=== PATIENT | male | born 1955 | race Caucasian/White ===

== ENCOUNTER 2017-08-25 19:02 | Inpatient (IN) | payer OTHER, SELFPAY ==
--- NOTE | 2017-08-25 19:08 | ED_ITS ---
HPI - Abdominal Pain General Chief Complaint: Abdominal Pain Stated Complaint: Bilateral Abdominal Pain Time Seen by Provider: 08/25/17 19:06 Source: patient, family and EMS Mode of arrival: EMS Limitations: no limitations History of Present Illness HPI narrative: 62-year-old male with history of small-bowel obstruction and multiple abdominal surgeries presents to the emergency department via would be EMS for evaluation of worsening generalized abdominal pain over the past few days. He has had subjective fever and chills and nausea but no vomiting. He states he has had decreased ability to have bowel movements over the past 5 days and increasing pain in his upper abdomen. He has got a history of small- bowel obstructions secondary to adhesions primarily as a complication from the Veronica fundoplication with a bad outcome Related Data Home Medications Medication Instructions Recorded Confirmed albuterol sulfate [ProAir HFA] 2 puff INHALATION Q4H PRN 08/25/17 08/25/17 amitriptyline 25 mg PO BEDTIME 08/25/17 08/25/17 cyclobenzaprine 10 mg PO BEDTIME 08/25/17 08/25/17 dicyclomine 10 mg PO TID 08/25/17 08/25/17 duloxetine [Cymbalta] 30 mg PO DAILY 08/25/17 08/25/17 fluticasone 1 spray INTRANASAL BID 08/25/17 08/25/17 gabapentin 3 tab PO BEDTIME 08/25/17 08/25/17 loratadine 10 mg PO DAILY PRN 08/25/17 08/25/17 metoprolol tartrate 25 mg PO DAILY 08/25/17 08/25/17 omeprazole 20 mg PO DAILY 08/25/17 08/25/17 pravastatin [Pravachol] 40 mg PO BEDTIME 08/25/17 08/25/17 sodium chloride [Jb 128] 1 dose EYE-BOTH DAILY 08/25/17 08/25/17 warfarin [Coumadin] 5 mg PO DAILY 08/25/17 08/25/17 warfarin [Coumadin] 7.5 mg PO DAILY 08/25/17 08/25/17 Allergies Allergy/AdvReac Type Severity Reaction Status Date / Time azithromycin Allergy Intermediate Verified 08/25/17 22:49 tree nut Allergy Intermediate Verified 08/25/17 22:49 morphine Allergy Verified 08/25/17 19:24 Sulfa (Sulfonamide Allergy Verified 08/25/17 19:25 Antibiotics) Review of Systems Review of Systems All systems reviewed & are unremarkable except as noted in HPI and below Constitutional Denies chills, Denies fever(s), Denies lethargy and Denies weakness Eyes Denies change in vision, Denies eye discharge, Denies irritation and Denies loss of vision ENT Ears, Nose, Mouth, and Throat: Denies change in voice, Denies neck pain and Denies sore throat Cardiovascular Denies chest pain, Denies irregular heart rhythm, Denies lightheadedness, Denies palpitations, Denies dyspnea, Denies dyspnea on exertion and Denies orthopnea Respiratory Denies cough, Denies dyspnea, Denies dyspnea on exertion and Denies wheezing Gastrointestinal Gastrointestinal: Reports abdominal pain, Denies change in bowel habits, Denies diarrhea, Reports nausea and Denies vomiting Genitourinary Denies hematuria, Denies flank pain, Denies urinary incontinence and Denies urinary urgency Musculoskeletal Denies neck pain Integumentary/Breasts Denies pruritus, Denies erythema, Denies rash and Denies wounds Neurologic Denies confusion, Denies loss of vision and Denies weakness Psychiatric Denies anxiety, Denies confusion, Denies depression, Denies homicidal ideation and Denies suicidal ideation Endocrine Denies palpitations Hematologic/Lymphatic Denies easy bruising Allergic/Immunologic Denies wheezing PFSH Medical History Achilles tendinitis (Acute) [place] esophagus (Acute) CVA (cerebral vascular accident) (Acute) Depression (Acute) Dyslipidemia (Acute) Exploratory laparotomy scar (Acute) GERD (gastroesophageal reflux disease) (Acute) HTN (hypertension) (Acute) Hiatal hernia (Acute) Small bowel obstruction (Acute) TIA (transient ischemic attack) (Acute) Surgical History History of Veronica fundoplication (Acute) History of discectomy (Acute) History of laminectomy (Acute) Hx of splenectomy (Acute) Social History Smoking Status: Former smoker alcohol intake: never Exam Narrative Exam Narrative: Uncomfortable 62-year-old male in obvious pain, holding his stomach Initial Vital Signs Initial Vital Signs: Vital Signs Pulse Rate 80 08/25/17 19:17 Respiratory Rate 18 08/25/17 19:17 Blood Pressure 131/81 H 08/25/17 19:17 Pulse Oximetry 96 08/25/17 19:17 Const General: cooperative, well developed and acute distress Nutritional Appearance: well nourished Orientation: alert, awake, oriented x3 and not confused [facility] Head: normocephalic and atraumatic Ears: external ears normal and TM's normal bilaterally Nose: external nose normal and No nasal discharge Face and sinus: sinuses nontender, face symmetric, no sinus tenderness and No dry mucous membranes Mouth: oral mucosae normal and moist mucous membranes Teeth and gingiva: dentition normal Throat: tonsils normal and uvula midline Eyes General: appearance normal, both eyes and all related structures Eyelids: eyelids normal Conjunctivae: conjunctivae normal Sclera: sclerae normal Pupils: PERRL EOM: EOM intact bilaterally Resp Effort & Inspection: normal respiratory effort, able to speak in complete sentences, no respiratory distress and no use of accessory muscles Auscultation: clear to auscultation bilaterally, no rales, no rhonchi and no wheezes GI Inspection: distended and scar Palpation: soft, no hepatosplenomegaly, No guarding, No pulsatile mass and tender (Generalized abdominal pain) Auscultation: normal bowel sounds Back/Spine/Pelvis Back: No CVA tenderness Cervical Spine: cervical ROM normal and No pain with cervical ROM Thoracic/Lumbar Spine: thoracic and lumbar spine normal to inspection Skin General: no rashes or lesions noted, No jaundice and No petechiae Neuro General: alert, oriented x3, gait normal and no focal motor deficits Speech: speech normal Extrem General: full ROM, no clubbing, cyanosis or edema, no pedal edema and no calf tenderness Course Orders Ordered: ED Orders 08/25/17 20:11 XR acute abdomen series Stat 08/25/17 20:15 Complete Blood Count AUTO DIFF Stat Comprehensive Metabolic Panel Stat Lipase Stat 08/25/17 21:03 CT abdomen pelvis w con Stat Sodium Chloride (Normal Saline 0.9%) 1,000 mls @ 150 mls/hr IV CONT KOJO Last Admin: 08/26/17 01:16 Dose: 150 mls/hr Infusion: 08/26/17 01:16 Dose: 150 mls/hr Admin: 08/25/17 19:47 Dose: 150 mls/hr HYDROMORPHONE [employer]EL[employer]IST (Dilaudid 6 Mg/30 Ml) 6 mg in 30 mls @ 0 mls/hr IV Q8HR KOJO Naloxone HCl (Narcan) 0.2 mg IV Q2MIN PRN; Protocol PRN Reason: Opiate Reversal Ondansetron HCl (Zofran) 4 mg IV Q4HR PRN PRN Reason: Nausea And Vomiting Discontinued Medications Hydromorphone HCl (Dilaudid) 0.5 mg IV NOW ONE Stop: 08/25/17 19:08 Last Admin: 08/25/17 19:47 Dose: 0.5 mg Ondansetron HCl (Zofran) 4 mg IV NOW ONE Stop: 08/25/17 20:06 Last Admin: 08/25/17 20:06 Dose: 4 mg Vital Signs - 8 hr 08/25/17 19:17 08/25/17 19:51 08/25/17 20:28 Temperature 99.7 F H Pulse Rate 80 80 76 Respiratory Rate 18 18 20 Blood Pressure 131/81 H 131/81 H Blood Pressure [Right Arm] 144/80 H Pulse Oximetry 96 96 98 08/25/17 21:38 08/25/17 22:00 08/25/17 22:20 Temperature 97.4 F L Pulse Rate 85 84 85 Respiratory Rate 19 13 20 Blood Pressure 144/97 H Blood Pressure [Right Arm] 131/82 H 121/68 H Pulse Oximetry 100 96 100 08/26/17 00:42 Temperature 98.8 F Pulse Rate 78 Respiratory Rate 18 Blood Pressure 145/85 H Blood Pressure [Right Arm] Pulse Oximetry 97 MDM - Abdominal Pain Differential Diagnosis Differential diagnosis: Likely abdominal pain, acute appendicitis, constipation , pancreatitis and small bowel obstruction Medical Records Attestation: I reviewed the patient's medical records. Lab Data Attestation: I reviewed the patient's lab results. Result diagrams: 08/25/17 20:15 08/25/17 20:15 Lab Results 08/25/17 08/25/17 08/25/17 Range/Units 20:15 20:15 Unknown WBC 10.1 (4.5-11.0) X10^3/uL RBC 4.83 (4.5-5.9) X10^6/uL Hgb 15.4 (13.5-17.5) g/dL Hct 45.1 (41-53) % MCV 93.5 (80-100) fL MCH 32.0 (26-34) PG MCHC 34.2 (30-36) % RDW 12.8 (11.6-14.8) % Plt Count 285 (150-400) X10^3/uL Neut % (Auto) 77.2 H (50-75) % Lymph % (Auto) 8.8 L (25-40) % [place] % (Auto) 12.6 (3-14) % Eos % (Auto) 1.1 L (2-4) % Baso % (Auto) 0.3 (0-2) % Neut # (Auto) 7800 H (3440-1457) /uL PT 54.3 H (10.1-12.7) SECONDS INR 5.2 H* (0.9-1.3) Sodium 141 (137-145) mmol/L Potassium 3.8 (3.4-5.1) mmol/L Chloride 103 (98-107) mmol/L Carbon Dioxide 27 (22-32) mmol/L BUN 9 (9-20) mg/dL Creatinine 0.80 (0.66-1.25) mg/dL Estimated GFR > 60.0 (>60) mL/min BUN/Creatinine Ratio 11.3 (6-22) Glucose 109 (80-110) mg/dL Calcium 9.0 (8.4-10.2) mg/dL Total Bilirubin 0.6 (0.2-1.3) mg/dL AST 26 (17-59) IU/L ALT 35 (21-72) IU/L Alkaline Phosphatase 54 (38-126) U/L Total Protein 6.7 (6.3-8.2) g/dL Albumin 3.9 (3.5-5.0) g/dL Globulin 2.8 (1.7-4.1) g/dL Albumin/Globulin Ratio 1.4 (1.0-2.8) Lipase 47 (23-300) U/L Imaging Data Abdominal x-ray: Attestation: I personally reviewed and interpreted this imaging study as follows: My impression: Nonspecific bowel gas pattern with possible air-fluid levels Radiologist's impression: PROCEDURE: XR ACUTE ABDOMEN SERIES INDICATIONS: Abdominal pain TECHNIQUE: One view chest and two views of the abdomen were acquired. COMPARISON: [facility], CT, ABDOMEN/PELVIS WITH CONTRAST, 01/17/2016, 13: 56. FINDINGS: Surgical changes and devices: None. Chest: Lungs are clear. Heart size is normal. No pleural effusions. No pneumoperitoneum. Abdomen: Bowel gas pattern is abnormal with gas filling of both the large and small bowel with overall mild to moderate dilatation of the strictures, extending into the pelvis.. No suspicious calcifications. Visualized solid organ contours appear normal. Bones: No suspicious bony lesions. IMPRESSION: Moderate gas dilatation of the large and small bowel extending into the pelvis. A point of bowel obstruction is not found. CT scanning may be warranted for more accurate assessment at this time. Dictated by: Jeff Mckinnon M.D. on 08/25/2017 at 20:51 Approved by: Jeff Mckinnon M.D. on 08/25/2017 at 20:52 CT scan - abdomen: Radiologist's impression: PROCEDURE: CT ABDOMEN PELVIS W CON INDICATIONS: severe abdominal pain TECHNIQUE: After the administration of intravenous contrast, 5 mm thick sections acquired from the diaphragm to the symphysis. 5 mm coronal and sagittal reformats were acquired. For radiation dose reduction, the following was used: automated exposure control, adjustment of mA and/or kV according to patient size. COMPARISON: None. FINDINGS: Image quality: Excellent. ABDOMEN: Lung bases: Lung bases are clear. Heart size is normal. Solid organs: Liver is normal in size and enhancement. Gallbladder appears normal. Biliary system is non dilated. Pancreas enhances normally. Spleen has been previously resected and there is a small splenule at the left upper quadrant. No adrenal nodules. Kidneys demonstrate normal size and enhancement, without hydronephrosis. Peritoneum and bowel: Colonic bowel loops demonstrate normal wall thickness and caliber and are relatively collapsed along the left colon and sigmoid area. No free fluid or air. Small bowel dilatation is present, with areas of maximal small bowel dilatation to 4.9 cm. Loops containing air-fluid levels are present over the upper and mid abdomen and below the lower left abdomen/pelvis junction there is a finding of distal small bowel normal caliber, and the right lower quadrant extending into the cecum. There is a prominence of the appendix, with a small amount of adjacent free fluid. Additional free fluid is seen deep within the lower recess of the pelvis at the midline, but no abscess is found. The appendiceal calibers up to 1 cm and the mucosal enhancement is mildly prominent (this is best seen centered on series 2 image 71 extending to the cecum and terminating at the appendiceal tip. Note is made that the appendix was relatively prominent in caliber but contained air [address]. Nodes and vessels: No retroperitoneal or mesenteric adenopathy by size criteria. Aorta and inferior vena cava are normal in size. Miscellaneous: No ventral hernias. PELVIS: Genitourinary: Bladder wall thickness is normal. Miscellaneous: No inguinal hernias or adenopathy. A focus of intussusception or volvulus as cause of the small bowel dilatation is not identified. Free fluid seen within the peritoneal space of the abdomen extends into the pelvis without abscess formation. Bones: No suspicious bony lesions. No vertebral body compression fractures. IMPRESSION: The pattern of small bowel dilatation is relatively prominent in this patient and the exact etiology is uncertain but there is no mass or intussusception, or volvulus. A likely cause is postoperative adhesion from the past. Prior splenectomy. The appendix is prominent in its transverse dimension of 1 cm and mild mucosal enhancement is associated. However the appendix previously was seen to be prominent in caliber on CT scanning of the abdomen/pelvis in January 2016. Mild acute appendicitis may be present relationship between the appearance of the appendix and the prominence of the small bowel distention is not explained. Depending on the clinical status exploratory laparotomy may be warranted at which time etiology of the small bowel dilatation and direct clinical evaluation of the appendix could be obtained. Dictated by: Jeff Mckinnon M.D. on 08/25/2017 at 21:34 Approved by: Jeff Mckinnon M.D. on 08/25/2017 at 21:44 Discharge Plan Departure Discharge Date/Time: 08/25/17 22:15 Interventions: ED Discharge Assessment Last Done: 08/25/17 22:09 Admit Date/Time: 08/25/17 22:08 Admit Provider: Carla Rodriguez
[2017-08-25 19:17] VITALS: BP 131/81; PULSE 80; RESP 18; O2SAT 96; BMI 29.5
[2017-08-25] MEDS: SODIUM CHLORIDE 0.9% 1,000 ML 150 ML IV (19:47)
[2017-08-25] MEDS: HYDROMORPHONE 0.5 MG INJ IV (19:47)
[2017-08-25 19:51] VITALS: BP 131/81; PULSE 80; RESP 18; TEMP 37.6; O2SAT 96; BMI 29.5
[2017-08-25] MEDS: ONDANSETRON 4 MG/2 ML INJ IV (20:06)
--- NOTE | 2017-08-25 20:11 | DI.RAD.S_ITS ---
PROCEDURE: XR ACUTE ABDOMEN SERIES INDICATIONS: Abdominal pain TECHNIQUE: One view chest and two views of the abdomen were acquired. COMPARISON: [facility], CT, ABDOMEN/PELVIS WITH CONTRAST, 01/17/2016, 13:56. FINDINGS: Surgical changes and devices: None. Chest: Lungs are clear. Heart size is normal. No pleural effusions. No pneumoperitoneum. Abdomen: Bowel gas pattern is abnormal with gas filling of both the large and small bowel with overall mild to moderate dilatation of the strictures, extending into the pelvis.. No suspicious calcifications. Visualized solid organ contours appear normal. Bones: No suspicious bony lesions. IMPRESSION: Moderate gas dilatation of the large and small bowel extending into the pelvis. A point of bowel obstruction is not found. CT scanning may be warranted for more accurate assessment at this time. Dictated by: Jeff Mckinnon M.D. on 08/25/2017 at 20:51 Approved by: Jeff Mckinnon M.D. on 08/25/2017 at 20:52
[2017-08-25 20:23] LABS: Add Manual Diff / Slide Review NO; Basophils Percent Auto 0.3 % (0-2); Eosinophils Percent Auto 1.1 % (2-4); Hematocrit 45.1 % (41-53); Hemoglobin 15.4 g/dL (13.5-17.5); Lymphocytes Percent Auto 8.8 % (25-40); Mean Corpuscular HGB Conc 34.2 % (30-36); Mean Corpuscular Volume 93.5 fL (80-100); Monocytes Percent Auto 12.6 % (3-14); Neutrophils Absolute Auto 7800 /uL (3000-5900); Neutrophils Percent Auto 77.2 % (50-75); Platelet Count 285 X10^3/uL (150-400); Red Blood Cell Count 4.83 X10^6/uL (4.5-5.9); Red Cell Distribution Width 12.8 % (11.6-14.8); White Blood Cell Count 10.1 X10^3/uL (4.5-11.0)
[2017-08-25 20:28] VITALS: BP 144/80; PULSE 76; RESP 20; O2SAT 98
[2017-08-25 20:34] LABS: Alanine Aminotransferase 35 IU/L (21-72); Albumin 3.9 g/dL (3.5-5.0); Albumin Globulin Ratio 1.4 (1.0-2.8); Alkaline Phosphatase 54 U/L (38-126); Aspartate Aminotransferase 26 IU/L (17-59); BUN Creatinine Ratio 11.3 (6-22); Bilirubin Total 0.6 mg/dL (0.2-1.3); Blood Urea Nitrogen 9 mg/dL (9-20); Carbon Dioxide 27 mmol/L (22-32); Chloride 103 mmol/L (98-107); Estimated Glomerular Filt Rate > 60.0 mL/min (>60); Globulin 2.8 g/dL (1.7-4.1); Glucose 109 mg/dL (80-110); HEMOLYSIS < 15 (0-50); Lipase 47 U/L (23-300); Potassium 3.8 mmol/L (3.4-5.1); Sodium 141 mmol/L (137-145); Total Protein 6.7 g/dL (6.3-8.2)
--- NOTE | 2017-08-25 21:03 | DI.CT.S_ITS ---
PROCEDURE: CT ABDOMEN PELVIS W CON INDICATIONS: severe abdominal pain TECHNIQUE: After the administration of intravenous contrast, 5 mm thick sections acquired from the diaphragm to the symphysis. 5 mm coronal and sagittal reformats were acquired. For radiation dose reduction, the following was used: automated exposure control, adjustment of mA and/or kV according to patient size. COMPARISON: None. FINDINGS: Image quality: Excellent. ABDOMEN: Lung bases: Lung bases are clear. Heart size is normal. Solid organs: Liver is normal in size and enhancement. Gallbladder appears normal. Biliary system is non dilated. Pancreas enhances normally. Spleen has been previously resected and there is a small splenule at the left upper quadrant. No adrenal nodules. Kidneys demonstrate normal size and enhancement, without hydronephrosis. Peritoneum and bowel: Colonic bowel loops demonstrate normal wall thickness and caliber and are relatively collapsed along the left colon and sigmoid area. No free fluid or air. Small bowel dilatation is present, with areas of maximal small bowel dilatation to 4.9 cm. Loops containing air-fluid levels are present over the upper and mid abdomen and below the lower left abdomen/pelvis junction there is a finding of distal small bowel normal caliber, and the right lower quadrant extending into the cecum. There is a prominence of the appendix, with a small amount of adjacent free fluid. Additional free fluid is seen deep within the lower recess of the pelvis at the midline, but no abscess is found. The appendiceal calibers up to 1 cm and the mucosal enhancement is mildly prominent (this is best seen centered on series 2 image 71 extending to the cecum and terminating at the appendiceal tip. Note is made that the appendix was relatively prominent in caliber but contained air [address]. Nodes and vessels: No retroperitoneal or mesenteric adenopathy by size criteria. Aorta and inferior vena cava are normal in size. Miscellaneous: No ventral hernias. PELVIS: Genitourinary: Bladder wall thickness is normal. Miscellaneous: No inguinal hernias or adenopathy. A focus of intussusception or volvulus as cause of the small bowel dilatation is not identified. Free fluid seen within the peritoneal space of the abdomen extends into the pelvis without abscess formation. Bones: No suspicious bony lesions. No vertebral body compression fractures. IMPRESSION: The pattern of small bowel dilatation is relatively prominent in this patient and the exact etiology is uncertain but there is no mass or intussusception, or volvulus. A likely cause is postoperative adhesion from the past. Prior splenectomy. The appendix is prominent in its transverse dimension of 1 cm and mild mucosal enhancement is associated. However the appendix previously was seen to be prominent in caliber on CT scanning of the abdomen/pelvis in January 2016. Mild acute appendicitis may be present relationship between the appearance of the appendix and the prominence of the small bowel distention is not explained. Depending on the clinical status exploratory laparotomy may be warranted at which time etiology of the small bowel dilatation and direct clinical evaluation of the appendix could be obtained. Dictated by: Jeff Mckinnon M.D. on 08/25/2017 at 21:34 Approved by: Jeff Mckinnon M.D. on 08/25/2017 at 21:44
[2017-08-25 21:38] VITALS: BP 131/82; PULSE 85; RESP 19; O2SAT 100
[2017-08-25 22:00] VITALS: BP 121/68; PULSE 84; RESP 13; O2SAT 96
[2017-08-25 22:14] LABS: Prothrombin Time 54.3 SECONDS (10.1-12.7)
[2017-08-25 22:20] VITALS: BP 144/97; PULSE 85; RESP 20; TEMP 36.3; O2SAT 100
[2017-08-25 22:21] LABS: INR 5.2 (0.9-1.3)
[2017-08-25 22:30] VITALS: BMI 29.5
--- NOTE | 2017-08-25 23:18 | PC.NURSE ---
Pt up to the floor from er at 2220. Pt was able to ambulate from stretcher to ac bed. A&O, calm and cooperative. Pt states has some memory loss from CVA that happened in 2013. Waiting for doctor to round on patient and to place orders.
[2017-08-26] VITALS (7 sets, daily range): BP systolic 107–145; BP diastolic 51–85; PULSE 70–78; RESP 16–18; TEMP 36.4–37.1; O2SAT 96–98
[2017-08-26] MEDS: SODIUM CHLORIDE 0.9% 1,000 ML 150 ML IV ×2 (01:16→06:51)
[2017-08-26] MEDS: HYDROMORPHONE PCA 6 MG/30 ML PCA.VIAL IV ×3 (06:47→21:22)
[2017-08-26] MEDS: ONDANSETRON 4 MG/2 ML INJ IV (08:42)
--- NOTE | 2017-08-26 09:44 | PM.HP.1 ---
History of Present Illness Date Patient Seen: 08/26/17 Time Patient Seen: 10:00 Chief complaint: Bilateral Abdominal Pain Narrative: 62-year-old man under the primary care of Dr. Jack Zambrano with a history of small-bowel obstruction several years ago due to adhesions attributed to scarring from prior Veronica fundoplication complicated by splenic laceration requiring splenectomy in 2005, presented overnight with generalized abdominal pain over the past few days, fevers, chills, decreased bowel movements, and upper abdominal pain without vomiting or diarrhea. He is admitted overnight and placed on Dilaudid [employer] and IV fluids, stating feeling much better this morning. He was unable to urinate with a urinary residual on bladder ultrasound of 700 mL, and a Perez catheter was placed this morning. He notes a prior history of urinary retention when he had his last bowel obstruction. Patient History Medical History Achilles tendinitis (Acute) Henderson esophagus (Acute) CVA (cerebral vascular accident) (Acute) Depression (Acute) Dyslipidemia (Acute) Exploratory laparotomy scar (Acute) GERD (gastroesophageal reflux disease) (Acute) HTN (hypertension) (Acute) Hiatal hernia (Acute) Small bowel obstruction (Acute) TIA (transient ischemic attack) (Acute) Surgical History History of Veronica fundoplication (Acute) History of discectomy (Acute) History of laminectomy (Acute) Hx of splenectomy (Acute) Family & Social History Family History: Reviewed 08/26/17 by Pino Michael MD Social History: Prior Living Arrangements House Safety & Behavioral: Feels Safe in Current Yes Environment Been Physically Hurt or No Threatened By a Person Suicidal Ideation Description None Suicide Plan Description No Plan Tobacco & Substance use: Smoking Status Former smoker alcohol intake never Substance Use Type does not use Meds Home Medications Medication Instructions Recorded Confirmed Type albuterol sulfate [ProAir HFA] 2 puff INHALATION Q4H PRN 08/25/17 08/25/17 History amitriptyline 25 mg PO BEDTIME 08/25/17 08/25/17 History cyclobenzaprine 10 mg PO BEDTIME 08/25/17 08/25/17 History dicyclomine 10 mg PO TID 08/25/17 08/25/17 History duloxetine [Cymbalta] 30 mg PO DAILY 08/25/17 08/25/17 History fluticasone 1 spray INTRANASAL BID 08/25/17 08/25/17 History gabapentin 3 tab PO BEDTIME 08/25/17 08/25/17 History loratadine 10 mg PO DAILY PRN 08/25/17 08/25/17 History metoprolol tartrate 25 mg PO DAILY 08/25/17 08/25/17 History omeprazole 20 mg PO DAILY 08/25/17 08/25/17 History pravastatin [Pravachol] 40 mg PO BEDTIME 08/25/17 08/25/17 History sodium chloride [Jb 128] 1 dose EYE-BOTH DAILY 08/25/17 08/25/17 History warfarin [Coumadin] 5 mg PO DAILY 08/25/17 08/25/17 History warfarin [Coumadin] 7.5 mg PO DAILY 08/25/17 08/25/17 History Allergies Allergy/AdvReac Type Severity Reaction Status Date / Time azithromycin Allergy Intermediate Verified 08/25/17 22:49 tree nut Allergy Intermediate Verified 08/25/17 22:49 morphine Allergy Verified 08/25/17 19:24 Sulfa (Sulfonamide Allergy Verified 08/25/17 19:25 Antibiotics) Review of Systems Review of Systems All systems reviewed & are unremarkable except as noted in HPI and below Exam Vital Signs (past 8 hours): - 08/26/17 04:15 Temperature 98.4 F Pulse Rate 78 Respiratory Rate 18 Blood Pressure 117/61 Pulse Oximetry 98 Oxygen Delivery Method Room Air Oxygen Flow Rate 0 Narrative Exam Narrative: General: Alert, pleasant, cheerful, cage in male, appears comfortable in no apparent distress. He is seen with his daughter Erika at bedside HEENT: Mild right facial droop, mild word-finding difficulty, pupils equal round reactive, extraocular movements intact, mucous membranes pink and moist Neck: Supple Lungs: Clear to auscultation Cardiac: Regular rate and rhythm Abdomen: Soft, bowel tones present, moderately distended, mild diffuse tenderness, no guarding, rebound or rigidity Extremities: Without edema, no calf tenderness or swelling Dermatologic: No rash or skin lesions Neurologic: Right arm paresis with flexion contracture in the hand, and mild right leg weakness Objective Imaging Chest/abdomen x-ray: Radiologist's impression: Moderate gas dilatation of the large and small bowel extending into the pelvis. A point of bowel obstruction is not found. CT scanning may be warranted for more accurate assessment at this time. CT scan - abdomen: Radiologist's impression: The pattern of small bowel dilatation is relatively prominent in this patient and the exact etiology is uncertain but there is no mass or intussusception, or volvulus. A likely cause is postoperative adhesion from the past. Prior splenectomy. The appendix is prominent in its transverse dimension of 1 cm and mild mucosal enhancement is associated. However the appendix previously was seen to be prominent in caliber on CT scanning of the abdomen/pelvis in January 2016. Mild acute appendicitis may be present relationship between the appearance of the appendix and the prominence of the small bowel distention is not explained. Depending on the clinical status exploratory laparotomy may be warranted at which time etiology of the small bowel dilatation and direct clinical evaluation of the appendix could be obtained. Labs Result Diagrams: 08/25/17 20:15 08/25/17 20:15 Labs: Laboratory Results - last 24 hr 08/25/17 08/25/17 08/25/17 20:15 20:15 Unknown WBC 10.1 RBC 4.83 Hgb 15.4 Hct 45.1 MCV 93.5 MCH 32.0 MCHC 34.2 RDW 12.8 Plt Count 285 Neut % (Auto) 77.2 H Lymph % (Auto) 8.8 L [place] % (Auto) 12.6 Eos % (Auto) 1.1 L Baso % (Auto) 0.3 Neut # (Auto) 7800 H PT 54.3 H INR 5.2 H* Sodium 141 Potassium 3.8 Chloride 103 Carbon Dioxide 27 BUN 9 Creatinine 0.80 Estimated GFR > 60.0 BUN/Creatinine Ratio 11.3 Glucose 109 Calcium 9.0 Total Bilirubin 0.6 AST 26 ALT 35 Alkaline Phosphatase 54 Total Protein 6.7 Albumin 3.9 Globulin 2.8 Albumin/Globulin Ratio 1.4 Lipase 47 Assessment & Plan Plan: Assessment/Plan Narrative: 1. Partial small bowel obstruction, rule out inciting appendicitis, likely due to adhesions. Consult General surgery, maintain nothing by mouth, continue IV hydration, antiemetics and hydromorphone [employer] for pain control. 2. 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 Hold warfarin, recheck protime and consider full reversal of surgery indicated. 3. Hypertension. Hold antihypertensives until taking orals and monitor. 4. Hyperlipidemia. Hold routine medications until taking orals. 5. DVT prophylaxis: Addressed with anticoagulation. 6. Code status: Full code. 7. Disposition: The patient is admitted to inpatient status as he will require at least 2 midnights of inpatient level care. Quality VTE Deep Vein Thrombosis/Pulmonary Embolism Present on Admission: No
--- NOTE | 2017-08-26 10:03 | CM.DANOTE ---
Discharge Planning/Care Management DCP: assessment: case received, EMR reviewed (ER note available, H&P is not) and met with pt. Introduced self and role. Pt is a 62 year old male with a hx of bowel obstructions and multiple abdominal surgeries who admitted last night to care of hospitalist team. ER physician does say that a surgical procedure may be indicated so may see surgery consulting as POC unfolds. P: follow to assist with any d/c needs that may arise. If all resolves medically would expect that pt will go home with clinic followup but is early in the stay.... CM Discharge Assessment Start: 08/26/17 10:00 Freq: Status: Active Protocol: Document 08/26/17 10:00 ITV (Rec: 08/26/17 10:03 ITV [id number]) Discharge Planning Assessment History Provided By Patient Medical Record Prior Living Arrangements House Comment lives alone, is . Will update ACG to change demographic info Independent with ADL's Yes Is patient alert and oriented? Yes Comment supportive adult children Additional Comment POC in process. surgery may be indicated. Review Status In Process Next Review Type Continued Stay Review
[2017-08-26 11:33] LABS: Hematocrit 41.3 % (41-53); Hemoglobin 14.3 g/dL (13.5-17.5); Mean Corpuscular HGB Conc 34.7 % (30-36); Mean Corpuscular Hemoglobin 32.5 PG (26-34); Mean Corpuscular Volume 93.6 fL (80-100); Platelet Count 280 X10^3/uL (150-400); Red Blood Cell Count 4.41 X10^6/uL (4.5-5.9); Red Cell Distribution Width 13.5 % (11.6-14.8); White Blood Cell Count 8.7 X10^3/uL (4.5-11.0)
[2017-08-26 11:53] LABS: BUN Creatinine Ratio 11.4 (6-22); Blood Urea Nitrogen 8 mg/dL (9-20); Calcium 8.2 mg/dL (8.4-10.2); Carbon Dioxide 27 mmol/L (22-32); Chloride 105 mmol/L (98-107); Estimated Glomerular Filt Rate > 60.0 mL/min (>60); Glucose 106 mg/dL (80-110); HEMOLYSIS < 15 (0-50); Potassium 4.4 mmol/L (3.4-5.1); Sodium 141 mmol/L (137-145)
[2017-08-26 11:57] LABS: INR 5.8 (0.9-1.3); Prothrombin Time 61.7 SECONDS (10.1-12.7)
[2017-08-26] MEDS: DEXTROSE 5%-0.45% NS 1,000 ML 125 ML IV ×2 (12:19→21:22)
--- NOTE | 2017-08-26 12:45 | P.CONS_ITS ---
History of Present Illness Date Patient Seen: 08/26/17 Time Patient Seen: 12:29 Chief complaint: Bilateral Abdominal Pain Reason for consult: Bowel obstruction Narrative: The patient is a gentleman who has had multiple abdominal operations including a Veronica fundoplication that had to be converted to an open procedure because of the splenic injury. He had a splenectomy performed at that time. Subsequently had a bowel obstruction which was treated with an open operation. He is back today because he has had symptoms suggesting an obstruction like he has had before. He has noticed is abdomen is distended. His pain is much better than when he came into the emergency room he says. He was unable to void and when they placed a catheter refill much better. He has been passing flatus all along but no bowel movement yesterday. He has had symptoms of a bowel obstruction treated non operatively in the past. [facility] Medical History Achilles tendinitis (Acute) Small bowel obstruction (Acute) Henderson esophagus (Chronic) Depression (Chronic) Dyslipidemia (Chronic) HTN (hypertension) (Chronic) TIA (transient ischemic attack) (Chronic) GERD (gastroesophageal reflux disease) (Resolved) Hiatal hernia (Resolved) CVA (cerebral vascular accident) (Inactive) Exploratory laparotomy scar (Inactive) Surgical History History of discectomy (Resolved) History of laminectomy (Resolved) History of Veronica fundoplication (Inactive) Hx of splenectomy (Inactive) Social History Smoking Status: Former smoker alcohol intake: never Meds Home Medications Medication Instructions Recorded Confirmed Type albuterol sulfate [ProAir HFA] 2 puff INHALATION Q4H PRN 08/25/17 08/25/17 History amitriptyline 25 mg PO BEDTIME 08/25/17 08/25/17 History cyclobenzaprine 10 mg PO BEDTIME 08/25/17 08/25/17 History dicyclomine 10 mg PO TID 08/25/17 08/25/17 History duloxetine [Cymbalta] 30 mg PO DAILY 08/25/17 08/25/17 History fluticasone 1 spray INTRANASAL BID 08/25/17 08/25/17 History gabapentin 3 tab PO BEDTIME 08/25/17 08/25/17 History loratadine 10 mg PO DAILY PRN 08/25/17 08/25/17 History metoprolol tartrate 25 mg PO DAILY 08/25/17 08/25/17 History omeprazole 20 mg PO DAILY 08/25/17 08/25/17 History pravastatin [Pravachol] 40 mg PO BEDTIME 08/25/17 08/25/17 History sodium chloride [Jb 128] 1 dose EYE-BOTH DAILY 08/25/17 08/25/17 History warfarin [Coumadin] 5 mg PO DAILY 08/25/17 08/25/17 History warfarin [Coumadin] 7.5 mg PO DAILY 08/25/17 08/25/17 History Allergies Allergy/AdvReac Type Severity Reaction Status Date / Time azithromycin Allergy Intermediate Verified 08/25/17 22:49 tree nut Allergy Intermediate Verified 08/25/17 22:49 morphine Allergy Verified 08/25/17 19:24 Sulfa (Sulfonamide Allergy Verified 08/25/17 19:25 Antibiotics) Review of Systems Review of Systems No visual difficulties. Does at times have difficulty swallowing solids since his Veronica fundoplication. Very limited ability to belch since his fundoplication. No acute breathing problems. No chest pain. Was unable to void which occurred at the last time he had a bowel obstruction as well. Perez was placed with relief of the pressure. Seizures or blackouts. He has had chronic right-sided weakness since a stroke. Exam Vital Signs (past 8 hours): - 08/26/17 08:30 Temperature 97.5 F L Pulse Rate 75 Respiratory Rate 16 Blood Pressure 126/73 H Pulse Oximetry 96 Oxygen Delivery Method Room Air Oxygen Flow Rate 0 Narrative Exam Narrative: Operative pleasant gentleman in no apparent distress. His eyes are nonicteric. Oral mucosa is pink moist no open lesions. Face is symmetric. There are no nodes in the neck or supraclavicular areas. No bruits in the neck. Trachea is midline and mobile. Lungs are clear to auscultation without rales or rhonchi. Heart very distant toed boots. Appreciate a murmur or gallop. Patient's abdomen is distended he has a vertical midline scar occupying about half or more of his abdomen from xiphoid down. No hernias appreciated. Not particularly tender at this time. Objective Imaging CT scan - abdomen: My impression: Patient has evidence of gas throughout his intestine with dilatation of the small bowel. There does not appear to be a great deal of fluid in his stomach . Labs Result Diagrams: 08/26/17 11:15 08/26/17 11:15 Labs: Laboratory Results - last 24 hr 08/25/17 08/25/17 08/25/17 20:15 20:15 Unknown WBC 10.1 RBC 4.83 Hgb 15.4 Hct 45.1 MCV 93.5 MCH 32.0 MCHC 34.2 RDW 12.8 Plt Count 285 Neut % (Auto) 77.2 H Lymph % (Auto) 8.8 L [place] % (Auto) 12.6 Eos % (Auto) 1.1 L Baso % (Auto) 0.3 Neut # (Auto) 7800 H PT 54.3 H INR 5.2 H* Sodium 141 Potassium 3.8 Chloride 103 Carbon Dioxide 27 BUN 9 Creatinine 0.80 Estimated GFR > 60.0 BUN/Creatinine Ratio 11.3 Glucose 109 Calcium 9.0 Total Bilirubin 0.6 AST 26 ALT 35 Alkaline Phosphatase 54 Total Protein 6.7 Albumin 3.9 Globulin 2.8 Albumin/Globulin Ratio 1.4 Lipase 47 08/26/17 08/26/17 08/26/17 11:15 11:15 11:15 WBC 8.7 RBC 4.41 L Hgb 14.3 Hct 41.3 MCV 93.6 MCH 32.5 MCHC 34.7 RDW 13.5 Plt Count 280 Neut % (Auto) Lymph % (Auto) [place] % (Auto) Eos % (Auto) Baso % (Auto) Neut # (Auto) PT 61.7 H D INR 5.8 H* Sodium 141 Potassium 4.4 Chloride 105 Carbon Dioxide 27 BUN 8 L Creatinine 0.70 Estimated GFR > 60.0 BUN/Creatinine Ratio 11.4 Glucose 106 Calcium 8.2 L Total Bilirubin AST ALT Alkaline Phosphatase Total Protein Albumin Globulin Albumin/Globulin Ratio Lipase Assessment & Plan (1) Small bowel obstruction due to adhesions: Current visit: Yes Status: Acute Plan: Assessment/Plan Narrative: This is actually a complicated problem. I attempted to place an NG tube but could not get past is distal esophagus despite multiple attempts to do so. This is most likely due to the effect of his anti reflux procedure. Gives a history of dysphagia and of very limited ability to belch which probably means that the Veronica is a bit tight and I cannot get NG through it. Therefore if his bowel obstruction persists he could actually necrosis his stomach from pressure if it became distended enough. He has gas throughout his intestine most likely related to the that he had a Veronica and cannot belch. He also will not be able to of all but appropriately which will further compound matters. Will repeat his labs and x-ray days and keep him absolutely NPO. Passing gas in this patient is not necessarily a sign of improvement and therefore should not prompt feeding until his x-ray appearance improves. The patient is chronically anticoagulated because of his stroke in the past. At this time I will not reverse him but that may be come required if he does not open up.
[2017-08-26 13:15] LABS: Neutrophils Absolute Manual 6786 /uL (3000-5900); Total Cells Counted 100
[2017-08-26 13:16] LABS: Anisocytosis 1+
[2017-08-26] MEDS: PHYTONADIONE (VIT K1) 10 MG/ML AMP 2.5 MG SUBCUT (14:30)
[2017-08-27] MEDS: DEXTROSE 5%-0.45% NS 1,000 ML 125 ML IV (03:57)
[2017-08-27 05:13] LABS: INR 3.4 (0.9-1.3); Prothrombin Time 36.3 SECONDS (10.1-12.7)
[2017-08-27 05:15] LABS: Add Manual Diff / Slide Review NO; Basophils Percent Auto 0.4 % (0-2); Eosinophils Percent Auto 2.7 % (2-4); Hematocrit 39.1 % (41-53); Hemoglobin 13.3 g/dL (13.5-17.5); Lymphocytes Percent Auto 20.6 % (25-40); Mean Corpuscular HGB Conc 34.1 % (30-36); Mean Corpuscular Volume 93.7 fL (80-100); Monocytes Percent Auto 13.7 % (3-14); Neutrophils Absolute Auto 6000 /uL (3000-5900); Neutrophils Percent Auto 62.6 % (50-75); Platelet Count 275 X10^3/uL (150-400); Red Blood Cell Count 4.17 X10^6/uL (4.5-5.9); Red Cell Distribution Width 13.1 % (11.6-14.8); White Blood Cell Count 9.7 X10^3/uL (4.5-11.0)
[2017-08-27 05:18] LABS: BUN Creatinine Ratio 5.7 (6-22); Blood Urea Nitrogen 4 mg/dL (9-20); Calcium 8.2 mg/dL (8.4-10.2); Carbon Dioxide 28 mmol/L (22-32); Chloride 104 mmol/L (98-107); Estimated Glomerular Filt Rate > 60.0 mL/min (>60); Glucose 112 mg/dL (80-110); HEMOLYSIS < 15 (0-50); Potassium 3.7 mmol/L (3.4-5.1); Sodium 139 mmol/L (137-145)
[2017-08-27 05:30] VITALS: BP 115/66; PULSE 76; RESP 16; TEMP 37.3; O2SAT 99
--- NOTE | 2017-08-27 06:00 | DI.RAD.S_ITS ---
PROCEDURE: XR ACUTE ABDOMEN SERIES INDICATIONS: Follow-up for small bowel obstruction TECHNIQUE: One view chest and two views of the abdomen were acquired. COMPARISON: [facility], CR, XR ACUTE ABDOMEN SERIES, 08/25/2017, 20:12. FINDINGS: Surgical changes and devices: None. Chest: Lungs are clear. Heart size is normal. No pleural effusions. No pneumoperitoneum. Abdomen: 5 .0 cm prominent upper quadrant bowel loop is seen however there is marked improvement in the overall appearance since 08/25/17. No suspicious calcifications. Visualized solid organ contours appear normal. Bones: No suspicious bony lesions. IMPRESSION: Marked improvement in dilated bowel loops since 08/25/17. Single remaining left upper quadrant dilated bowel loop is noted. Dictated by: Tylor Guzman M.D. on 08/27/2017 at 8:45 Approved by: Tylor Guzman M.D. on 08/27/2017 at 8:47
[2017-08-27] MEDS: HYDROMORPHONE PCA 6 MG/30 ML PCA.VIAL IV (06:30)
[2017-08-27 08:00] VITALS: BP 120/66; PULSE 72; RESP 16; TEMP 37.2; O2SAT 94
--- NOTE | 2017-08-27 09:08 | P.PN_ITS ---
Subjective Date Patient Seen: 08/27/17 Time Patient Seen: 08:40 Interval history: The patient reports he is feeling better with no nausea, vomiting, abdominal pain, and he has been passing flatus. An attempt to pass a nasogastric tube yesterday was unsuccessful. Exam Vital Signs (past 8 hours): - 08/27/17 05:30 Temperature 99.2 F Pulse Rate 76 Respiratory Rate 16 Blood Pressure 115/66 Pulse Oximetry 99 Oxygen Delivery Method Room Air Oxygen Flow Rate 0 Narrative Exam Narrative: General: Alert, pleasant, cheerful, cage in male, appears comfortable in no apparent distress. He is seen with his daughter Erika at bedside HEENT: Mild right facial droop, mild word-finding difficulty, pupils equal round reactive, extraocular movements intact, mucous membranes pink and moist Neck: Supple Lungs: Clear to auscultation Cardiac: Regular rate and rhythm Abdomen: Soft, bowel tones present, mildly distended, nontender, no guarding, rebound or rigidity, long midline scar noted Extremities: Without edema, no calf tenderness or swelling Dermatologic: No rash or skin lesions Neurologic: Right arm paresis with flexion contracture in the hand, and mild right leg weakness Objective Imaging Abdominal x-ray: Radiologist's impression: PROCEDURE: XR ACUTE ABDOMEN SERIES INDICATIONS: Follow-up for small bowel obstruction TECHNIQUE: One view chest and two views of the abdomen were acquired. COMPARISON: [facility], CR, XR ACUTE ABDOMEN SERIES, 08/25/2017, 20:12. FINDINGS: Surgical changes and devices: None. Chest: Lungs are clear. Heart size is normal. No pleural effusions. No pneumoperitoneum. Abdomen: 5 .0 cm prominent upper quadrant bowel loop is seen however there is marked improvement in the overall appearance since 08/25/17. No suspicious calcifications. Visualized solid organ contours appear normal. Bones: No suspicious bony lesions. IMPRESSION: Marked improvement in dilated bowel loops since 08/25/17. Single remaining left upper quadrant dilated bowel loop is noted. Labs Result Diagrams: 08/27/17 04:52 08/27/17 04:52 Labs: Laboratory Results - last 24 hr 08/26/17 08/26/17 08/26/17 11:15 11:15 11:15 WBC 8.7 RBC 4.41 L Hgb 14.3 Hct 41.3 MCV 93.6 MCH 32.5 MCHC 34.7 RDW 13.5 Plt Count 280 Neut % (Auto) Lymph % (Auto) [place] % (Auto) Eos % (Auto) Baso % (Auto) Neut # (Auto) Total Counted 100 Seg Neutrophils % 78.0 H Lymphocytes % (Manual) 15.0 L Monocytes % (Manual) 6.0 Basophils % (Manual) 1.0 Neutrophils # (Manual) 6786 H RBC Morphology Not Reportable Anisocytosis 1+ H PT 61.7 H D INR 5.8 H* Sodium 141 Potassium 4.4 Chloride 105 Carbon Dioxide 27 BUN 8 L Creatinine 0.70 Estimated GFR > 60.0 BUN/Creatinine Ratio 11.4 Glucose 106 Calcium 8.2 L 08/27/17 08/27/17 08/27/17 04:52 04:52 04:52 WBC 9.7 RBC 4.17 L Hgb 13.3 L Hct 39.1 L MCV 93.7 MCH 32.0 MCHC 34.1 RDW 13.1 Plt Count 275 Neut % (Auto) 62.6 Lymph % (Auto) 20.6 L [place] % (Auto) 13.7 Eos % (Auto) 2.7 Baso % (Auto) 0.4 Neut # (Auto) 6000 H Total Counted Seg Neutrophils % Lymphocytes % (Manual) Monocytes % (Manual) Basophils % (Manual) Neutrophils # (Manual) RBC Morphology Anisocytosis PT 36.3 H D INR 3.4 H Sodium 139 Potassium 3.7 Chloride 104 Carbon Dioxide 28 BUN 4 L Creatinine 0.70 Estimated GFR > 60.0 BUN/Creatinine Ratio 5.7 L Glucose 112 H Calcium 8.2 L Assessment & Plan Plan: Assessment/Plan Narrative: 1. Partial small bowel obstruction. Clinically and radiographically improved. Advance to clear liquid diet if cleared by surgery. 2. 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 Improved with low-dose vitamin K administered yesterday. Likely hold warfarin tonight given over anticoagulation and restart tomorrow. 3. Hypertension. Hold antihypertensives until taking orals and monitor. 4. Hyperlipidemia. Hold routine medications until taking orals. 5. DVT prophylaxis: Addressed with anticoagulation. 6. Code status: Full code. 7. Disposition: The patient is admitted to inpatient status as he will require at least 2 midnights of inpatient level care. Quality VTE Deep Vein Thrombosis/Pulmonary Embolism Present on Admission: No
--- NOTE | 2017-08-27 11:31 | PC.NURSE ---
Addendum entered by Sandi Vela R.N. 08/27/17 11:40: just down to check on pt. He is going to put an order to advance diet to full liquids. Pt would like to discharge. Original Note: Pt started on clear liquids and tolerating well. Denies any nausea or vomiting and had the start of a small stool.
[2017-08-27 12:30] VITALS: BP 136/76; PULSE 74; RESP 16; TEMP 37; O2SAT 100
--- NOTE | 2017-08-27 15:40 | P.PN_ITS ---
Subjective Date Patient Seen: 08/27/17 Time Patient Seen: 13:38 Interval history: Patient is having passage of a lot of flatus and small bowel movement. He is feeling almost normal. Still thinks he is a little bigger than normal. Exam Vital Signs (past 8 hours): - 08/27/17 08:00 08/27/17 12:30 Temperature 98.9 F 98.6 F Pulse Rate 72 74 Respiratory Rate 16 16 Blood Pressure 120/66 136/76 H Pulse Oximetry 94 100 Oxygen Delivery Method Room Air Oxygen Flow Rate 0 Narrative Exam Narrative: Lungs are clear. Abdomen is still a bit distended but much softer than yesterday. No hernias appreciated. Objective Labs Result Diagrams: 08/27/17 04:52 08/27/17 04:52 Labs: Laboratory Results - last 24 hr 08/27/17 08/27/17 08/27/17 04:52 04:52 04:52 WBC 9.7 RBC 4.17 L Hgb 13.3 L Hct 39.1 L MCV 93.7 MCH 32.0 MCHC 34.1 RDW 13.1 Plt Count 275 Neut % (Auto) 62.6 Lymph % (Auto) 20.6 L [place] % (Auto) 13.7 Eos % (Auto) 2.7 Baso % (Auto) 0.4 Neut # (Auto) 6000 H PT 36.3 H D INR 3.4 H Sodium 139 Potassium 3.7 Chloride 104 Carbon Dioxide 28 BUN 4 L Creatinine 0.70 Estimated GFR > 60.0 BUN/Creatinine Ratio 5.7 L Glucose 112 H Calcium 8.2 L Assessment & Plan Plan: Assessment/Plan Narrative: Small-bowel obstruction seems to be resolving. Cautiously begin clear liquids but avoid taking in large amounts especially if it makes him nauseated. We will see how he feels in the morning. Ordered x-rays again for the morning. Labs are okay. Quality VTE Deep Vein Thrombosis/Pulmonary Embolism Present on Admission: No
[2017-08-27 15:47] VITALS: BP 133/75; PULSE 74; RESP 18; TEMP 36.8; O2SAT 96
--- NOTE | 2017-08-27 17:05 | CM.DPC ---
DCP: continued: alerted by colleague Eunice that a vm was left at [phone] line [facility] stating that she was available to assist with any d/c planning needs. Contact #: [phone]. DCP team will incorporate her into the d/c planning process deidra
[2017-08-27 19:42] VITALS: BP 137/78; PULSE 75; RESP 18; TEMP 36.9; O2SAT 98
[2017-08-28 00:14] VITALS: BP 124/77; PULSE 90; RESP 18; TEMP 36.9; O2SAT 97
[2017-08-28 01:06] VITALS: RESP 16
--- NOTE | 2017-08-28 04:10 | PC.NURSE ---
Addendum entered by Trudy Love R.N. 08/28/17 06:06: Voided X2 throughout shift, OOB to BR indep with steady gait. Still no BM this shift, passing flatus, mild abd distention. Denies nausea. Abd XR done this morning, awaiting results, pt aware Dr checking in today will interpret XR results. No voiced concerns. Original Note: [employer]- Pt slept well throughout shift, No voiced concerns. No BM throughout night.
[2017-08-28 04:11] VITALS: BP 153/84; PULSE 96; RESP 18; TEMP 36.2; O2SAT 97
[2017-08-28 05:33] LABS: INR 1.3 (0.9-1.3); Prothrombin Time 14.5 SECONDS (10.1-12.7)
--- NOTE | 2017-08-28 07:00 | DI.RAD.S_ITS ---
PROCEDURE: XR ACUTE ABDOMEN SERIES INDICATIONS: FOLLOW UP FOR SMALL BOWEL OBSTRUCTION TECHNIQUE: One view chest and two views of the abdomen were acquired. COMPARISON: [facility], CR, XR ACUTE ABDOMEN SERIES, 08/27/2017, 5:52. FINDINGS: Surgical changes and devices: None. Chest: Lungs are clear. Heart size is normal. No pleural effusions. No pneumoperitoneum. Abdomen: Bowel gas pattern is improved since 08/27/17. Currently no dilated bowel loops identified.. No suspicious calcifications. Visualized solid organ contours appear normal. Surgical clips project in the left upper quadrant. Bones: No suspicious bony lesions. IMPRESSION: Improved appearance since yesterday. Currently, no dilated bowel loops are identified. Dictated by: Tylor Guzman M.D. on 08/28/2017 at 9:09 Approved by: Tylor Guzman M.D. on 08/28/2017 at 9:10
[2017-08-28 07:45] VITALS: BP 147/79; PULSE 83; RESP 15; TEMP 36.6; O2SAT 96
--- NOTE | 2017-08-28 07:51 | PM.DS.1 ---
History of Present Illness Date Patient Seen: 08/28/17 Time Patient Seen: 07:30 Chief complaint: Bilateral Abdominal Pain Narrative: 62-year-old man under the primary care of Dr. Jack Zambrano with a history of small-bowel obstruction several years ago due to adhesions attributed to scarring from prior Veronica fundoplication complicated by splenic laceration requiring splenectomy in 2005, presented overnight with generalized abdominal pain over the past few days, fevers, chills, decreased bowel movements, and upper abdominal pain without vomiting or diarrhea. 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 He was unable to urinate with a urinary residual on bladder ultrasound of 700 mL, and a Perez catheter was placed this morning. He notes a prior history of urinary retention when he had his last bowel obstruction. Discharge Providers Date of admission: 08/25/17 22:08 Primary care physician: Jack Zambrano DO Consults: 08/26/17 10:41 Consult to Physician Routine Comment: Consulting Provider: Angelo Vaca Reason for consultation: R/o appendicitis Has provider been notified: Yes Discharge provider: Pino Michael MD Summary Discharge Diagnosis: 1. Partial small bowel obstruction, spontaneously resolved 2. 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 Hypertension 4. Hyperlipidemia Hospital Course: The patient was admitted and placed on a program of bowel rest and IV hydration. General surgery was consulted and attempted to place a nasogastric tube, however, this was not possible likely due to his prior Veronica fundoplication. There was concern that this might possibly be causing a high-level bowel obstruction, however, the patient was able to swallow liquids and saliva without difficulty and subsequently had return of bowel function with passage of flatus and a bowel movement, and was able to advance to clear liquid diets without problems. He was feeling much better with radiographic resolution and interested in discharge home. No other issues arose. Status at Discharge Functional status at discharge: independent ambulation Overall status at discharge: patient is progressing back to baseline Time Spent with Patient Less than 30 minutes Exam Vital Signs (past 8 hours): - 08/28/17 00:14 08/28/17 01:06 08/28/17 04:11 Temperature 98.4 F 97.1 F L Pulse Rate 90 96 H Respiratory Rate 18 16 18 Blood Pressure 124/77 H 153/84 H Pulse Oximetry 97 97 Oxygen Delivery Method Room Air Oxygen Flow Rate 0 Narrative Exam Narrative: General: Alert, pleasant, cheerful, cage in male, appears comfortable in no apparent distress. He is seen with his daughter Erika at bedside HEENT: Mild right facial droop, mild word-finding difficulty, pupils equal round reactive, extraocular movements intact, mucous membranes pink and moist Neck: Supple Lungs: Clear to auscultation Cardiac: Regular rate and rhythm Abdomen: Soft, bowel tones present, nondistended, nontender, no guarding, rebound or rigidity, long midline scar noted Extremities: Without edema, no calf tenderness or swelling Dermatologic: No rash or skin lesions Neurologic: Right arm paresis with flexion contracture in the hand, and mild right leg weakness Objective Labs Result Diagrams: 08/27/17 04:52 08/27/17 04:52 Labs: Laboratory Results - last 24 hr 08/28/17 04:56 PT 14.5 H D INR 1.3 Discharge Plan Discharge Plan Patient Disposition: Home, Self-Care Provider Discharge Instructions Diet: Diet as Tolerated Wound Care Report to your healthcare provider any signs of infection, such as:: chills, fever, night sweats and increased pain Discharge Data Primary Care Provider: Jack Zambrano Attending Provider: Carla Rodriguez Admit Date/Time: 08/25/17 22:08 Quality VTE Deep Vein Thrombosis/Pulmonary Embolism Present on Admission: No
--- NOTE | 2017-08-28 07:54 | P.DS_ITS ---
History of Present Illness Date Patient Seen: 08/28/17 Time Patient Seen: 07:30 Chief complaint: Bilateral Abdominal Pain Narrative: 62-year-old man under the primary care of Dr. Jack Zambrano with a history of small-bowel obstruction several years ago due to adhesions attributed to scarring from prior Veronica fundoplication complicated by splenic laceration requiring splenectomy in 2005, presented overnight with generalized abdominal pain over the past few days, fevers, chills, decreased bowel movements , and upper abdominal pain without vomiting or diarrhea. 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 He was unable to urinate with a urinary residual on bladder ultrasound of 700 mL, and a Perez catheter was placed this morning. He notes a prior history of urinary retention when he had his last bowel obstruction. Discharge Providers Date of admission: 08/25/17 22:08 Primary care physician: Jack Zambrano DO Consults: 08/26/17 10:41 Consult to Physician Routine Comment: Consulting Provider: Angelo Vaca Reason for consultation: R/o appendicitis Has provider been notified: Yes Discharge provider: Pino Michael MD Summary Discharge Diagnosis: 1. Partial small bowel obstruction, spontaneously resolved 2. 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 Hypertension 4. Hyperlipidemia Hospital Course: The patient was admitted and placed on a program of bowel rest and IV hydration. General surgery was consulted and attempted to place a nasogastric tube, however, this was not possible likely due to his prior Veronica fundoplication. There was concern that this might possibly be causing a high- level bowel obstruction, however, the patient was able to swallow liquids and saliva without difficulty and subsequently had return of bowel function with passage of flatus and a bowel movement, and was able to advance to clear liquid diets without problems. He was feeling much better with radiographic resolution and interested in discharge home. No other issues arose. Status at Discharge Functional status at discharge: independent ambulation Overall status at discharge: patient is progressing back to baseline Time Spent with Patient Less than 30 minutes Exam Vital Signs (past 8 hours): - 08/28/17 00:14 08/28/17 01:06 08/28/17 04:11 Temperature 98.4 F 97.1 F L Pulse Rate 90 96 H Respiratory Rate 18 16 18 Blood Pressure 124/77 H 153/84 H Pulse Oximetry 97 97 Oxygen Delivery Method Room Air Oxygen Flow Rate 0 Narrative Exam Narrative: General: Alert, pleasant, cheerful, cage in male, appears comfortable in no apparent distress. He is seen with his daughter Erika at bedside HEENT: Mild right facial droop, mild word-finding difficulty, pupils equal round reactive, extraocular movements intact, mucous membranes pink and moist Neck: Supple Lungs: Clear to auscultation Cardiac: Regular rate and rhythm Abdomen: Soft, bowel tones present, nondistended, nontender, no guarding, rebound or rigidity, long midline scar noted Extremities: Without edema, no calf tenderness or swelling Dermatologic: No rash or skin lesions Neurologic: Right arm paresis with flexion contracture in the hand, and mild right leg weakness Objective Labs Result Diagrams: 08/27/17 04:52 08/27/17 04:52 Labs: Laboratory Results - last 24 hr 08/28/17 04:56 PT 14.5 H D INR 1.3 Discharge Plan Discharge Plan Patient Disposition: Home, Self-Care Provider Discharge Instructions Diet: Diet as Tolerated Wound Care Report to your healthcare provider any signs of infection, such as:: chills, fever, night sweats and increased pain Discharge Data Primary Care Provider: Jack Zambrano Attending Provider: Carla Rodriguez Admit Date/Time: 08/25/17 22:08 Quality VTE Deep Vein Thrombosis/Pulmonary Embolism Present on Admission: No
--- NOTE | 2017-08-28 09:06 | PC.NURSE ---
Pts bowel tones positive and abdomen soft. Tolerating full liquid diet and steady on feet. Pt is going to discharge home this morning.
--- NOTE | 2017-08-28 14:40 | CM.DPC ---
DCP Cont: Patients daughter here. Patient is to be discharged to home, no immediate needs at this time. Catarina Meza RN/Hand Etcher
== END 2017-08-28 10:47 | disposition home or self-care (01) | DRG 389 ==
LOC: ED 19:44 → AC 22:09
PROVIDERS: Internal Medicine; Admitting Provider Internal Medicine; Emergency Provider Emergency Medicine; PCP Family Medicine; Visit Provider Internal Medicine
DX: K56.51 Intestinal adhesions [bands], with partial obstruction (principal); I69.351 Hemiplegia and hemiparesis following cerebral infarction affecting right dominant side; K91.89 Other postprocedural complications and disorders of digestive system; I69.320 Aphasia following cerebral infarction; I10 Essential (primary) hypertension; E78.5 Hyperlipidemia, unspecified; Z87.891 Personal history of nicotine dependence
CPT/HCPCS: 36415; 74022; 74177; 80048; 80053; 83690; 85025; 85610; 93005; 99283; J1170; J2405; J3430; Q9967

== ENCOUNTER 2019-09-10 09:26 | Inpatient (IN) | payer OTHER, SELFPAY ==
[2019-09-10] VITALS (16 sets, daily range): BP systolic 116–149; BP diastolic 71–90; PULSE 78–98; RESP 16–39; TEMP 36.7–37; O2SAT 91–99; BMI 29.9
[2019-09-10 09:58] LABS: INR 2.3 (0.9-1.3); Prothrombin Time 26.6 SECONDS (10.1-12.7)
[2019-09-10 10:01] LABS: Add Manual Diff / Slide Review NO; Basophils Absolute Auto 0 /uL (0-100); Basophils Percent Auto 0.2 % (0-2); Eosinophils Absolute Auto 100 /uL (0-450); Eosinophils Percent Auto 0.6 % (2-4); Hematocrit 51.5 % (41-53); Hemoglobin 17.1 g/dL (13.5-17.5); Lymphocytes Absolute Auto 700 /uL (1100-4500); Lymphocytes Percent Auto 3.2 % (25-40); Mean Corpuscular HGB Conc 33.2 % (30-36); Mean Corpuscular Hemoglobin 31.5 PG (26-34); Mean Corpuscular Volume 94.8 fL (80-100); Monocytes Absolute Auto 1300 /uL (0-900); Monocytes Percent Auto 6.5 % (3-14); Neutrophils Absolute Auto 18300 /uL (1500-7000); Neutrophils Percent Auto 89.5 % (50-75); PTT Partial Thromboplastin Tim 48 SECONDS (26.4-36.2); Red Blood Cell Count 5.43 X10^6/uL (4.5-5.9); Red Cell Distribution Width 13.2 % (11.6-14.8); White Blood Cell Count 20.5 X10^3/uL (4.5-11.0)
[2019-09-10 10:03] LABS: Alanine Aminotransferase 30 IU/L (<50); Albumin 4.5 g/dL (3.5-5.0); Albumin Globulin Ratio 1.4 (1.0-2.8); Alkaline Phosphatase 70 U/L (38-126); Aspartate Aminotransferase 35 IU/L (17-59); BUN Creatinine Ratio 13.5 (6-22); Bilirubin Total 0.7 mg/dL (0.2-1.3); Blood Urea Nitrogen 13 mg/dL (9-20); Calcium 9.4 mg/dL (8.4-10.2); Carbon Dioxide 24 mmol/L (22-32); Chloride 105 mmol/L (98-107); Estimated Glomerular Filt Rate > 60.0 mL/min (>60); Globulin 3.2 g/dL (1.7-4.1); Glucose 156 mg/dL (80-110); HEMOLYSIS < 15 (0-50); Lipase 61 U/L (23-300); Potassium 4.6 mmol/L (3.4-5.1); Sodium 138 mmol/L (137-145); Total Protein 7.7 g/dL (6.3-8.2)
--- NOTE | 2019-09-10 10:04 | DI.CT.S_ITS ---
PROCEDURE: CT ABDOMEN PELVIS W CON INDICATIONS: abdominal pain with questionable bowel obstruction TECHNIQUE: After the administration of intravenous contrast, 5 mm thick sections acquired from the diaphragm to the symphysis. 5 mm coronal and sagittal reformats were acquired. For radiation dose reduction, the following was used: automated exposure control, adjustment of mA and/or kV according to patient size. COMPARISON: [facility], CT, CT ABDOMEN PELVIS W CON, 08/25/2017, 21:07. FINDINGS: Image quality: Excellent. ABDOMEN: Lung bases: Lung bases are clear. Heart size is normal. Solid organs: Liver is normal in size and enhancement. Gallbladder is within normal limits . Biliary system is non dilated. Pancreas enhances normally. Spleen is normal in size and enhancement. No adrenal nodules. Kidneys demonstrate normal size and enhancement, without hydronephrosis. Peritoneum and bowel: Limited evaluation of the bowel secondary to lack of oral contrast. Moderate gastric distention. Duodenum is mildly distended. There are multiple moderately dilated loops of jejunum and ileum. There is a transition point between dilated and nondilated small bowel within the left lower abdomen anteriorly (series 2, image 57, series 5, image 47). Appendix is distended, as before, measuring 9 mm without evidence of surrounding fat stranding. Colon is nondistended. Nodes and vessels: No retroperitoneal or mesenteric adenopathy by size criteria. Aorta and inferior vena cava are normal in size. Miscellaneous: No ventral hernias. PELVIS: Genitourinary: Bladder wall thickness is normal. Miscellaneous: No inguinal hernias or adenopathy. Bones: No suspicious bony lesions. No vertebral body compression fractures. IMPRESSION: 1. Small-bowel obstruction, with transition point in the left hemiabdomen as described above. 2. Distended appendix, as before, without evidence of surrounding fat stranding, consistent with normal variation, as before. 3. Trace free fluid within the pelvis. Dictated by: Rico Velasquez M.D. on 09/10/2019 at 9:30 Approved by: Rico Velasquez M.D. on 09/10/2019 at 9:34
[2019-09-10 10:28] LABS: Platelet Count 325 X10^3/uL (150-400)
[2019-09-10] MEDS: HYDROMORPHONE 0.5 MG INJ IV (10:35)
[2019-09-10] MEDS: diphenhydrAMINE 50 MG/ML VIAL 25 MG IV ×2 (10:35→13:29)
[2019-09-10] MEDS: ONDANSETRON 4 MG/2 ML INJ IV ×3 (10:35→22:33)
[2019-09-10] MEDS: SODIUM CHLORIDE 0.9% 1,000 ML 1000 ML IV (10:35)
[2019-09-10 10:52] LABS: Lactate Dehydrogenase 508 U/L (313-618)
[2019-09-10 10:53] LABS: Lactate (Lactic Acid) 2.1 mmol/L (0.7-2.1)
--- NOTE | 2019-09-10 11:33 | ED_ITS ---
HPI - Abdominal Pain General Chief Complaint: Abdominal Pain Stated Complaint: Bowel blockage Time Seen by Provider: 09/10/19 10:04 Source: patient Mode of arrival: Wheelchair Limitations: no limitations History of Present Illness HPI narrative: CC: abdominal Pain HPI: The patient is a 64-year-old male who presents to the emergency department with abdominal pain and a questionable bowel obstruction. The patient before has presented to the emergency department with similar complaints which resolved spontaneously. The patient's pain and discomfort started approximately 1:00 a.m. in the morning and has gotten progressively worse. He has developed progressive nausea but has had no vomiting. His last bowel movement was yesterday which was normal. He has not been passing flatus today. He has had no blood in his stools or black tarry stools. He denies any back pain more than usual. He denies any fall or injury. The patient states that he had a previous Veronica fundoplication. As a complication the patient had a stroke. He has also had a splenectomy when they nicked his spleen. He denies having his gallbladder or appendix removed. He denies a history of pancreatitis diabetes mellitus myocardial infarction but admits to history of asthma. The patient does not smoke cigarettes drink alcohol or use any drugs including marijuana. He denies any fever chills or sweats. He has had a dry unproductive cough with shortness of breath with pain and discomfort he denies any chest pain or palpitations he has had mild dizziness. He has had no troubles urinating and no hematemesis. Related Data Home Medications Medication Instructions Recorded Confirmed albuterol sulfate [ProAir HFA] 2 puff INHALATION Q4H PRN 08/25/17 08/25/17 amitriptyline 25 mg PO BEDTIME 08/25/17 09/10/19 cyclobenzaprine 10 mg PO BEDTIME 08/25/17 09/10/19 duloxetine [Cymbalta] 30 mg PO DAILY 08/25/17 09/10/19 fluticasone propionate 1 spray INTRANASAL BID 08/25/17 09/10/19 gabapentin 3 tab PO BEDTIME 08/25/17 09/10/19 metoprolol tartrate 25 mg PO DAILY 08/25/17 09/10/19 omeprazole 20 mg PO DAILY 08/25/17 09/10/19 pravastatin [Pravachol] 40 mg PO BEDTIME 08/25/17 09/10/19 sodium chloride [Jb 128] 1 dose EYE-BOTH DAILY 08/25/17 09/10/19 warfarin [Coumadin] 2.5 mg PO DAILY 08/25/17 09/10/19 warfarin [Coumadin] 5 mg PO DAILY 08/25/17 09/10/19 Allergies Allergy/AdvReac Type Severity Reaction Status Date / Time azithromycin Allergy Intermediate Verified 08/25/17 22:49 tree nut Allergy Intermediate Verified 08/25/17 22:49 morphine Allergy Verified 08/25/17 19:24 Sulfa (Sulfonamide Allergy Verified 08/25/17 19:25 Antibiotics) Review of Systems Review of Systems Narrative: His review of systems were all negative except for those mentioned in the history of present illness. Patient History Medical History Achilles tendinitis (Acute) Henderson esophagus (Chronic) CVA (cerebral vascular accident) (Inactive) Depression (Chronic) Dyslipidemia (Chronic) Exploratory laparotomy scar (Inactive) GERD (gastroesophageal reflux disease) (Resolved) Hiatal hernia (Resolved) HTN (hypertension) (Chronic) Small bowel obstruction (Acute) TIA (transient ischemic attack) (Chronic) Surgical History History of discectomy (Resolved) History of laminectomy (Resolved) History of Veronica fundoplication (Inactive) Hx of splenectomy (Inactive) Social History household members: none Smoking Status: Former smoker alcohol intake: former Smoking Status: Former smoker Substance Use Type: does not use Exam Narrative Exam Narrative: PHYSICAL EXAM: CONSTITUTIONAL: Awake, Alert, Oriented, Coherent, Cooperative in mild distress.. Does not appear toxic or ill. HEAD: AT/NC EENT: PERRL, FROM of eyes. NOSE:No epistaxis or nasal drainage MOUTH:Oral mucosa is moist and pink, posterior pharynx is without erythema or exudate. NECK: Supple, no obvious JVD, Trachea is midline without stridor, .. SPINE: Palpation of the cervical, Thoracic, Lumbar or Sacral spine reveals no gross deformity or tenderness. No CVA tenderness. THORAX: No deformity, retractions, chest wall tenderness. LUNGS: Clear, symmetrical breath sounds without respiratory distress. HEART: Normal heart tones, regular rhythm and rate without murmur. ABDOMEN: Distended tympanitic diffusely tender with diffuse mild guarding no rebound. Bowel sounds are present but decreased EXTREMITIES: No edema, deformity, tenderness or cyanosis. SKIN: No rash, bruising, petechiae or purpura. NEURO: Awake, alert, oriented, conversive, cranial nerves II-XII are symmetrical , moves all 4 extremities and is ambulatory. The patient has had a previous stroke and has hemiparesis and weakness in his right arm and right leg the with mild increased tone MENTAL HEALTH: Does not appear anxious or depressed. Initial Vital Signs Initial Vital Signs: Vital Signs Temperature 98.5 F 09/10/19 09:29 Pulse Rate 83 09/10/19 09:29 Respiratory Rate 16 09/10/19 09:29 Blood Pressure 123/76 09/10/19 09:29 Pulse Oximetry 97 09/10/19 09:29 Course Course Course Narrative: 1133: CT of the patient's abdomen revealed:IMPRESSION: 1. Small-bowel obstruction, with transition point in the left hemiabdomen as d escribed above. 2. Distended appendix, as before, without evidence of surrounding fat stranding, consistent with normal variation, as before. 3. Trace free fluid within the pelvis. The patient's CBC reveals white blood count of 20.5. I will call and discuss the patient with Dr. Hanna the general surgeon on-call. I will administer 4.5 g of Zosyn IV piggyback. 1145: I discussed the patient with Dr. Hanna. He will consult and see the patient this afternoon. With the patient's Veronica arm he would not put an NG tube down the patient. The patient is on warfarin which I discovered reviewing his medications which she states is secondary to his previous stroke. I am checking an INR on the patient right now which will need to be reversed. Dr. Hanna recommends that the patient be admitted to medicine with him consulting. Orders Ordered: ED Orders 09/10/19 12:57 ABO RH Type Stat Fresh Frozen Plasma Stat Bisacodyl (Dulcolax) 10 mg [place] BID KOJO Docusate Sodium (Colace Oral Liquid) 100 mg PO BID KOJO Hydromorphone HCl (Dilaudid) 2 mg IV Q2HR PRN PRN Reason: abdominal pain Last Admin: 09/10/19 16:44 Dose: 2 mg Documented by: LEONARDO Sodium Chloride (Normal Saline 0.9%) 1,000 mls @ 100 mls/hr IV CONT KOJO Last Admin: 09/10/19 15:50 Dose: 100 mls/hr Documented by: AKANKSHA Ceftriaxone Sodium/Dextrose (Rocephin) 1 gm in 50 mls @ 100 mls/hr IV Q12H KOJO Last Infusion: 09/10/19 17:56 Dose: 0 mls/hr Documented by: Admin: 09/10/19 15:52 Dose: 100 mls/hr Documented by: AKANKSHA Naloxone HCl (Narcan) 0.2 mg IV Q2MIN PRN PRN Reason: Opiate Reversal Ondansetron HCl (Zofran) 4 mg IV Q4HR PRN PRN Reason: Nausea And Vomiting Last Admin: 09/10/19 14:51 Dose: 4 mg Documented by: JOHN Pantoprazole Sodium (Protonix) 20 mg IV DAILY KOJO Discontinued Medications Diphenhydramine HCl (Benadryl) 25 mg IV NOW ONE Stop: 09/10/19 10:08 Last Admin: 09/10/19 10:35 Dose: 25 mg Documented by: BRITTAM Diphenhydramine HCl (Benadryl) 25 mg IV NOW ONE Stop: 09/10/19 13:21 Last Admin: 09/10/19 13:29 Dose: 25 mg Documented by: KOFIARTIN Hydromorphone HCl (Dilaudid) 0.5 mg IV NOW ONE Stop: 09/10/19 10:08 Last Admin: 09/10/19 10:35 Dose: 0.5 mg Documented by: KBROTEM Hydromorphone HCl (Dilaudid) 1 mg IV NOW ONE Stop: 09/10/19 12:33 Last Admin: 09/10/19 12:37 Dose: 1 mg Documented by: RMARTIN Hydromorphone HCl (Dilaudid) 1 mg IV Q2HR PRN PRN Reason: abdominal pain Last Admin: 09/10/19 14:51 Dose: 1 mg Documented by: JOHN Sodium Chloride (Normal Saline 0.9%) 1,000 mls @ 1,000 mls/hr IV BOLUS PRN PRN Reason: Fluid replacement Last Infusion: 09/10/19 12:19 Dose: 0 mls/hr Documented by: Admin: 09/10/19 10:35 Dose: 1,000 mls/hr Documented by: SARA Piperacillin/Tazobactam/Dextrose (Zosyn) 4.5 gm in 100 mls @ 200 mls/hr IV NOW ONE Stop: 09/10/19 12:04 Last Infusion: 09/10/19 12:51 Dose: 0 mls/hr Documented by: Admin: 09/10/19 12:10 Dose: 200 mls/hr Documented by: DEBBI Phytonadione 5 mg/ Dextrose 50.5 mls @ 101 mls/hr IV NOW ONE Stop: 09/10/19 12:13 Last Infusion: 09/10/19 13:57 Dose: 0 mls/hr Documented by: Infusion: 09/10/19 13:36 Dose: 101 mls/hr Documented by: Infusion: 09/10/19 13:05 Dose: 0 mls/hr Documented by: DEE DEE Admin: 09/10/19 12:50 Dose: 101 mls/hr Documented by: DEBBI Ondansetron HCl (Zofran) 4 mg IV NOW ONE Stop: 09/10/19 10:07 Last Admin: 09/10/19 10:35 Dose: 4 mg Documented by: SARA Sodium Biphosphate/Sodium Phosphate (Fleet Enema) 1 each [place] NOW ONE Stop: 09/10/19 15:46 Last Admin: 09/10/19 16:44 Dose: 1 each Documented by: LEONARDO Vital Signs Vital signs: Vital Signs - 8 hr 09/10/19 11:30 09/10/19 12:00 09/10/19 12:16 Pulse Rate 80 78 83 Blood Pressure 139/84 Pulse Oximetry 99 98 97 MDM - Abdominal Pain Medical Records Attestation: I reviewed the patient's medical records. Lab Data Attestation: I reviewed the patient's lab results. Result diagrams: 09/10/19 09:45 09/10/19 09:45 Labs: Lab Results 09/10/19 09/10/19 09/10/19 Range/Units 09:45 09:45 09:45 WBC 20.5 H (4.5-11.0) X10^3/uL RBC 5.43 (4.5-5.9) X10^6/uL Hgb 17.1 (13.5-17.5) g/dL Hct 51.5 (41-53) % MCV 94.8 (80-100) fL MCH 31.5 (26-34) PG MCHC 33.2 (30-36) % RDW 13.2 (11.6-14.8) % Plt Count 325 (150-400) X10^3/uL Neut % (Auto) 89.5 H (50-75) % Lymph % (Auto) 3.2 L (25-40) % Latimer % (Auto) 6.5 (3-14) % Eos % (Auto) 0.6 L (2-4) % Baso % (Auto) 0.2 (0-2) % Neut # (Auto) 19744 H (8706-6185) /uL Lymph # (Auto) 700 L (2698-5876) /uL Latimer # (Auto) 1300 H (0-900) /uL Eos # (Auto) 100 (0-450) /uL Baso # (Auto) 0 (0-100) /uL PT 26.6 H (10.1-12.7) SECONDS INR 2.3 H (0.9-1.3) APTT 48 H (26.4-36.2) SECONDS Sodium 138 (137-145) mmol/L Potassium 4.6 (3.4-5.1) mmol/L Chloride 105 (98-107) mmol/L Carbon Dioxide 24 (22-32) mmol/L BUN 13 (9-20) mg/dL Creatinine 0.96 (0.66-1.25) mg/dL Estimated GFR > 60.0 (>60) mL/min BUN/Creatinine Ratio 13.5 (6-22) Glucose 156 H (80-110) mg/dL Lactate (0.7-2.1) mmol/L Calcium 9.4 (8.4-10.2) mg/dL Total Bilirubin 0.7 (0.2-1.3) mg/dL AST 35 (17-59) IU/L ALT 30 (<50) IU/L Alkaline Phosphatase 70 (38-126) U/L Lactate Dehydrogenase (313-618) U/L Total Protein 7.7 (6.3-8.2) g/dL Albumin 4.5 (3.5-5.0) g/dL Globulin 3.2 (1.7-4.1) g/dL Albumin/Globulin Ratio 1.4 (1.0-2.8) Lipase 61 (23-300) U/L 09/10/19 09/10/19 Range/Units 09:48 09:48 WBC (4.5-11.0) X10^3/uL RBC (4.5-5.9) X10^6/uL Hgb (13.5-17.5) g/dL Hct (41-53) % MCV (80-100) fL MCH (26-34) PG MCHC (30-36) % RDW (11.6-14.8) % Plt Count (150-400) X10^3/uL Neut % (Auto) (50-75) % Lymph % (Auto) (25-40) % Latimer % (Auto) (3-14) % Eos % (Auto) (2-4) % Baso % (Auto) (0-2) % Neut # (Auto) (9255-0539) /uL Lymph # (Auto) (6266-8563) /uL Latimer # (Auto) (0-900) /uL Eos # (Auto) (0-450) /uL Baso # (Auto) (0-100) /uL PT (10.1-12.7) SECONDS INR (0.9-1.3) APTT (26.4-36.2) SECONDS Sodium (137-145) mmol/L Potassium (3.4-5.1) mmol/L Chloride (98-107) mmol/L Carbon Dioxide (22-32) mmol/L BUN (9-20) mg/dL Creatinine (0.66-1.25) mg/dL Estimated GFR (>60) mL/min BUN/Creatinine Ratio (6-22) Glucose (80-110) mg/dL Lactate 2.1 (0.7-2.1) mmol/L Calcium (8.4-10.2) mg/dL Total Bilirubin (0.2-1.3) mg/dL AST (17-59) IU/L ALT (<50) IU/L Alkaline Phosphatase (38-126) U/L Lactate Dehydrogenase 508 (313-618) U/L Total Protein (6.3-8.2) g/dL Albumin (3.5-5.0) g/dL Globulin (1.7-4.1) g/dL Albumin/Globulin Ratio (1.0-2.8) Lipase (23-300) U/L ECG Data Attestation: I personally reviewed and interpreted this ECG as follows: Interpretation: 1148: The patient's EKG obtained at 9:5 6:34 a.m. reveals a normal sinus rhythm with a ventricular rate of 78. Intervals are normal QTC is 430 milliseconds. Ripton is left axis deviation. The patient has a QS wave in lead III and AVF and V1 suggestive of an inferior wall SC at age indeterminate. There are no other acute diagnostic ST segment changes. The T-waves in lead V1 are inverted and flattened. Discharge Plan Departure Patient Disposition: Admitted As Inpatient Clinical Impression: Small bowel obstruction due to adhesions Abdominal pain Qualifiers: Abdominal location: generalized Qualified Code(s): R10.84 - Generalized abdominal pain Discharge Date/Time: 09/10/19 14:00 Referrals: Jack Zambrano DO [Primary Care Provider] - Admit Date/Time: 09/10/19 12:21 Admit Provider: Jayesh Talbert
[2019-09-10] MEDS: PIPERACILLIN-TAZO 4.5 GM/100 ML FROZ.PIGGY IV (12:10)
[2019-09-10] MEDS: HYDROMORPHONE 0.5 MG INJ 1 MG IV (12:37)
[2019-09-10] MEDS: PHYTONADIONE (VIT K1) 5 MG in DEXTROSE 5 % IN WATER 50 ML 101 ML IV (12:50)
--- NOTE | 2019-09-10 13:19 | PC.NURSE ---
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 IV Vit K paused. Symptoms resolved other then headache. Provider Laura notified of patient's complaints, verbal order for IV benadryl, and resume IV Vit K per Dr. Sanchez.
--- NOTE | 2019-09-10 13:59 | PC.NURSE ---
Vit K infusion completed. Patient tolerated with no complications after IV Benadryl.
--- NOTE | 2019-09-10 14:41 | PM.HP.1 ---
History of Present Illness History of Present Illness Date Patient Seen: 09/10/19 Time Patient Seen: 14:41 Chief complaint: Bowel blockage Narrative: Jayesh Raza is a 64-year-old male with past medical history of CVA with right-sided hemiparesis (on warfarin for ? blood clot that was found and presumed hypercoagulable state?), hypertension, GERD, prior Veronica fundoplication complicated by splenic laceration and resulting splenectomy in 2005 with prior partial small-bowel obstructions who presented with acute onset of abdominal pain starting at approximately 1:00 a.m. this morning. Patient states that he had midline lower abdominal pain that radiated slightly to his left lower quadrant associated with severe nausea but no overt emesis. He has been unable to tolerate any p.o. intake and decided to come into the emergency room. His abdominal pain is currently at a 9 after receiving 2 doses of IV Dilaudid in the emergency room. His last bowel movement was yesterday per report, and he thinks he passed gas early this morning but cannot recall exactly. He denies any recent fevers, chills, abdominal pain prior to this morning, nausea prior to this morning, or vomiting. In the emergency room, his vital signs are unremarkable. Labs showed an initial leukocytosis of 20.5, with a hemoglobin of 17 probably indicative of hemoconcentration. INR was 2.3. Chemistry showed a glucose of 156 but was otherwise unremarkable. CT imaging showed a bowel obstruction with a transition point in the left lower quadrant. EKG was unremarkable. Patient was admitted to Medicine Service for continued medical management of small-bowel obstruction pending surgical consultation. Patient was given vitamin K and has been ordered for FFP in the chance he needs to go to the operating room. COVID-19 testing is pending. Patient History Medical History (Updated 09/10/19 @ 11:36 by Chinmay Sanchez MD) Achilles tendinitis (Acute) [place] esophagus (Chronic) CVA (cerebral vascular accident) (Inactive) Depression (Chronic) Dyslipidemia (Chronic) Exploratory laparotomy scar (Inactive) GERD (gastroesophageal reflux disease) (Resolved) Hiatal hernia (Resolved) HTN (hypertension) (Chronic) Small bowel obstruction (Acute) TIA (transient ischemic attack) (Chronic) Surgical History (Updated 08/26/17 @ 12:37 by Angelo Vaca MD) History of discectomy (Resolved) History of laminectomy (Resolved) History of Veronica fundoplication (Inactive) Hx of splenectomy (Inactive) Family & Social History Safety & Behavioral: Feels Safe in Current Yes Environment Been Physically Hurt or No Threatened By a Person Tobacco & Substance use: Smoking Status Former smoker alcohol intake never Substance Use Type does not use Meds Home Medications and Allergies Home Medications Medication Instructions Recorded Confirmed Type albuterol sulfate [ProAir HFA] 2 puff INHALATION Q4H PRN 08/25/17 08/25/17 History amitriptyline 25 mg PO BEDTIME 08/25/17 09/10/19 History cyclobenzaprine 10 mg PO BEDTIME 08/25/17 09/10/19 History duloxetine [Cymbalta] 30 mg PO DAILY 08/25/17 09/10/19 History fluticasone propionate 1 spray INTRANASAL BID 08/25/17 09/10/19 History gabapentin 3 tab PO BEDTIME 08/25/17 09/10/19 History metoprolol tartrate 25 mg PO DAILY 08/25/17 09/10/19 History omeprazole 20 mg PO DAILY 08/25/17 09/10/19 History pravastatin [Pravachol] 40 mg PO BEDTIME 08/25/17 09/10/19 History sodium chloride [Jb 128] 1 dose EYE-BOTH DAILY 08/25/17 09/10/19 History warfarin [Coumadin] 2.5 mg PO DAILY 08/25/17 09/10/19 History warfarin [Coumadin] 5 mg PO DAILY 08/25/17 09/10/19 History Allergies Allergy/AdvReac Type Severity Reaction Status Date / Time azithromycin Allergy Intermediate Verified 08/25/17 22:49 tree nut Allergy Intermediate Verified 08/25/17 22:49 morphine Allergy Verified 08/25/17 19:24 Sulfa (Sulfonamide Allergy Verified 08/25/17 19:25 Antibiotics) Review of Systems Review of Systems Narrative: All other systems reviewed with the patient and are negative unless otherwise stated. Exam Vital Signs (past 8 hours): - 09/10/19 09:29 09/10/19 09:53 09/10/19 10:00 Temperature 98.5 F Pulse Rate 83 78 81 Respiratory Rate 16 20 39 H Blood Pressure 123/76 Pulse Oximetry 97 94 09/10/19 11:00 09/10/19 11:30 09/10/19 12:00 Temperature Pulse Rate 80 80 78 Respiratory Rate Blood Pressure Pulse Oximetry 95 99 98 09/10/19 12:16 09/10/19 12:30 09/10/19 12:58 Temperature Pulse Rate 83 83 88 Respiratory Rate 16 Blood Pressure 139/84 116/71 116/71 Pulse Oximetry 97 98 94 09/10/19 13:00 09/10/19 13:03 Temperature Pulse Rate 87 92 H Respiratory Rate Blood Pressure 132/73 Pulse Oximetry 93 91 Oxygen Delivery Method Room Air Narrative Exam Narrative: GENERAL APPEARANCE: Well developed, well nourished, in no acute distress. SKIN: Inspection of the skin reveals no rashes, ulcerations or petechiae. HEENT: Normocephalic atraumatic, extraocular muscles are intact, oropharynx is clear and mucous membranes are moist, neck is supple without adenopathy NECK: Supple and symmetric. There was no thyroid enlargement, and no tenderness, or masses were felt. CHEST: Normal AP diameter and normal contour without any kyphoscoliosis. LUNGS: Auscultation of the lungs revealed no wheezes, rhonchi, or rales. CARDIOVASCULAR: There was a regular rate and rhythm without any murmurs, gallops, rubs. Peripheral pulses were 2+ and symmetric. ABDOMEN: Soft, mildly distended with well-healed midline abdominal incision. Reports severe tenderness most prominent in midline lower and right lower quadrant. MUSCULOSKELETAL: There was no tenderness or effusions noted. Muscle strength and tone were normal. EXTREMITIES: No cyanosis, clubbing or edema. NEUROLOGIC: Alert and oriented x 3. Normal affect. Gait was normal. Strength is +5/5 in the Upper Extremities and Lower Extremities Bilaterally. Sensation to touch was normal. Objective ECG Impression: Normal sinus rhythm with a rate of 77. No evidence of ischemia. Imaging CT scan - abdomen: Radiologist's impression: IMPRESSION: 1. Small-bowel obstruction, with transition point in the left hemiabdomen as described above. 2. Distended appendix, as before, without evidence of surrounding fat stranding, consistent with normal variation, as before. 3. Trace free fluid within the pelvis. Labs Result Diagrams: 09/10/19 09:45 09/10/19 09:45 Labs: Laboratory Results - last 24 hr 09/10/19 09/10/19 09/10/19 09:45 09:45 09:45 WBC 20.5 H RBC 5.43 Hgb 17.1 Hct 51.5 MCV 94.8 MCH 31.5 MCHC 33.2 RDW 13.2 Plt Count 325 Neut % (Auto) 89.5 H Lymph % (Auto) 3.2 L [place] % (Auto) 6.5 Eos % (Auto) 0.6 L Baso % (Auto) 0.2 Neut # (Auto) 27190 H Lymph # (Auto) 700 L [place] # (Auto) 1300 H Eos # (Auto) 100 Baso # (Auto) 0 PT 26.6 H INR 2.3 H APTT 48 H Sodium 138 Potassium 4.6 Chloride 105 Carbon Dioxide 24 BUN 13 Creatinine 0.96 Estimated GFR > 60.0 BUN/Creatinine Ratio 13.5 Glucose 156 H Lactate Calcium 9.4 Total Bilirubin 0.7 AST 35 ALT 30 Alkaline Phosphatase 70 Lactate Dehydrogenase Total Protein 7.7 Albumin 4.5 Globulin 3.2 Albumin/Globulin Ratio 1.4 Lipase 61 Blood Type 09/10/19 09/10/19 09/10/19 09:48 09:48 12:57 WBC RBC Hgb Hct MCV MCH MCHC RDW Plt Count Neut % (Auto) Lymph % (Auto) [place] % (Auto) Eos % (Auto) Baso % (Auto) Neut # (Auto) Lymph # (Auto) [place] # (Auto) Eos # (Auto) Baso # (Auto) PT INR APTT Sodium Potassium Chloride Carbon Dioxide BUN Creatinine Estimated GFR BUN/Creatinine Ratio Glucose Lactate 2.1 Calcium Total Bilirubin AST ALT Alkaline Phosphatase Lactate Dehydrogenase 508 Total Protein Albumin Globulin Albumin/Globulin Ratio Lipase Blood Type A Positive Assessment & Plan Assessment & Plan narrative: Jayesh Raza is a 64-year-old male with past medical history of CVA with right-sided hemiparesis (on warfarin for ? blood clot that was found and presumed hypercoagulable state?), hypertension, GERD, prior Veronica fundoplication complicated by splenic laceration and resulting splenectomy in 2005 with prior partial small-bowel obstructions who presented with acute onset of abdominal pain starting the day of admission. He is admitted with small-bowel obstruction. 1. Small bowel obstruction, acute, present on admission -likely secondary to adhesions given history of prior Veronica fundoplication complicated by splenic laceration with splenectomy. Patient reports this is his 3rd small bowel obstruction. Most recent admission was 2 years ago for a partial obstruction that resolved without surgical interventions. -CT showing SBO with transition point. -ER contacted surgery, Dr. Hanna, and currently awaiting formal recommendations. -NPO and IVF, continue symptom relief with IV Dilaudid and Zofran. -Leukocytosis can be reactive and with Hg elevation likely is somewhat hemoconcentrated. No other signs or symptoms of infection. Patient was given a dose of zosyn in the ER. Will continue to monitor at this point and hold on further antibiotics. 2. History of stroke with residual mild expressive aphasia and right yvonne paresis, on chronic anticoagulation. -patient was ordered for FFP and given IV vitamin K. -INR is therapeutic on admission at 2.3. -will resume coumadin if surgery is not indicated and patient tolerating oral medications. -if urgent surgery is needed consider PCC. 3. Hypertension. Hold antihypertensives until taking orals and monitor. 4. Hyperlipidemia. Hold routine medications until taking orals. 5. GERD, chronic -will replace home PPI with IV while NPO. DVT: On warfarin, currently on hold given INR 2.3. Disposition: The patient is admitted to inpatient status as his stay is expected to exceed 2 midnights. Code: Full COVID-19 COVID-19 status: Result pending Result date/Date tested (Pos, Neg/Pending): 09/10/19
[2019-09-10] MEDS: HYDROMORPHONE 1 MG INJ IV (14:51)
--- NOTE | 2019-09-10 15:36 | P.CONS_ITS ---
History of Present Illness Consult details Date Patient Seen: 09/10/19 Time Patient Seen: 15:37 Chief complaint: Bowel blockage Reason for consult: Bowel obstruction Narrative: 64-year-old white male who is had several partial small-bowel obs tructions in the past. These have resolved without surgical intervention. He developed severe abdominal pain last night and presented to the emergency department today with nausea but no vomiting. Has significant abdominal pain. White count in the ER is 20,000. Lactate 2.1 which is upper limit of normal. CT reveals a partial small bowel obstruction with some dilated small-bowel loops in the left mid abdomen. He does have a copious amount of gas and stool and contrast in the ascending colon and scattered throughout the colon and rectum. Patient is on Coumadin status post CVA some years ago. Meds Home Medications and Allergies Home Medications Medication Instructions Recorded Confirmed Type albuterol sulfate [ProAir HFA] 2 puff INHALATION Q4H PRN 08/25/17 08/25/17 History amitriptyline 25 mg PO BEDTIME 08/25/17 09/10/19 History cyclobenzaprine 10 mg PO BEDTIME 08/25/17 09/10/19 History duloxetine [Cymbalta] 30 mg PO DAILY 08/25/17 09/10/19 History fluticasone propionate 1 spray INTRANASAL BID 08/25/17 09/10/19 History gabapentin 3 tab PO BEDTIME 08/25/17 09/10/19 History metoprolol tartrate 25 mg PO DAILY 08/25/17 09/10/19 History omeprazole 20 mg PO DAILY 08/25/17 09/10/19 History pravastatin [Pravachol] 40 mg PO BEDTIME 08/25/17 09/10/19 History sodium chloride [Jb 128] 1 dose EYE-BOTH DAILY 08/25/17 09/10/19 History warfarin [Coumadin] 2.5 mg PO DAILY 08/25/17 09/10/19 History warfarin [Coumadin] 5 mg PO DAILY 08/25/17 09/10/19 History Allergies Allergy/AdvReac Type Severity Reaction Status Date / Time azithromycin Allergy Intermediate Verified 08/25/17 22:49 tree nut Allergy Intermediate Verified 08/25/17 22:49 morphine Allergy Verified 08/25/17 19:24 Sulfa (Sulfonamide Allergy Verified 08/25/17 19:25 Antibiotics) Exam Vital Signs (past 8 hours): - 09/10/19 09:29 09/10/19 09:53 09/10/19 10:00 Temperature 98.5 F Pulse Rate 83 78 81 Respiratory Rate 16 20 39 H Blood Pressure 123/76 Pulse Oximetry 97 94 09/10/19 11:00 09/10/19 11:30 09/10/19 12:00 Temperature Pulse Rate 80 80 78 Respiratory Rate Blood Pressure Pulse Oximetry 95 99 98 09/10/19 12:16 09/10/19 12:30 09/10/19 12:58 Temperature Pulse Rate 83 83 88 Respiratory Rate 16 Blood Pressure 139/84 116/71 116/71 Pulse Oximetry 97 98 94 09/10/19 13:00 09/10/19 13:03 09/10/19 14:15 Temperature 98.0 F Pulse Rate 87 92 H 89 Respiratory Rate 18 Blood Pressure 132/73 137/86 Pulse Oximetry 93 91 98 Oxygen Delivery Method Room Air Oxygen Flow Rate 0 Narrative Exam Narrative: Patient is alert with some degree of expressive aphasia but is able to communicate. He has moderate mid abdominal pain. Patient is afebrile no tachycardia heart rate in the 80s. lungs are clear Heart regular rhythm no murmur Abdomen is tense and distended. There is a well-healed midline scar without hernias. This is from prior splenectomy following Veronica fundoplication where he had a splenic injury. No inguinal hernias. Objective Labs Result Diagrams: 09/10/19 09:45 09/10/19 09:45 Labs: Laboratory Results - last 24 hr 09/10/19 09/10/19 09/10/19 09:45 09:45 09:45 WBC 20.5 H RBC 5.43 Hgb 17.1 Hct 51.5 MCV 94.8 MCH 31.5 MCHC 33.2 RDW 13.2 Plt Count 325 Neut % (Auto) 89.5 H Lymph % (Auto) 3.2 L [place] % (Auto) 6.5 Eos % (Auto) 0.6 L Baso % (Auto) 0.2 Neut # (Auto) 47980 H Lymph # (Auto) 700 L [place] # (Auto) 1300 H Eos # (Auto) 100 Baso # (Auto) 0 PT 26.6 H INR 2.3 H APTT 48 H Sodium 138 Potassium 4.6 Chloride 105 Carbon Dioxide 24 BUN 13 Creatinine 0.96 Estimated GFR > 60.0 BUN/Creatinine Ratio 13.5 Glucose 156 H Lactate Calcium 9.4 Total Bilirubin 0.7 AST 35 ALT 30 Alkaline Phosphatase 70 Lactate Dehydrogenase Total Protein 7.7 Albumin 4.5 Globulin 3.2 Albumin/Globulin Ratio 1.4 Lipase 61 Blood Type 09/10/19 09/10/19 09/10/19 09:48 09:48 12:57 WBC RBC Hgb Hct MCV MCH MCHC RDW Plt Count Neut % (Auto) Lymph % (Auto) [place] % (Auto) Eos % (Auto) Baso % (Auto) Neut # (Auto) Lymph # (Auto) [place] # (Auto) Eos # (Auto) Baso # (Auto) PT INR APTT Sodium Potassium Chloride Carbon Dioxide BUN Creatinine Estimated GFR BUN/Creatinine Ratio Glucose Lactate 2.1 Calcium Total Bilirubin AST ALT Alkaline Phosphatase Lactate Dehydrogenase 508 Total Protein Albumin Globulin Albumin/Globulin Ratio Lipase Blood Type A Positive Assessment & Plan Assessment & Plan narrative: Patient has clinical and radiographic evidence of a partial small bowel obstruction. Patient has had a previous Veronica fundoplication. With prior bowel obstructions the patient has not been able to have a nasogastric tube passed successfully. He states he has had copious bleeding when that was attempted. Currently the patient is actively on Coumadin with a therapeutic INR. He indeed has a partial small bowel obstruction. Concerning is his elevated white count. Lactic acid is still normal. Desired treatment would be to place an NG tube however with his history I do not think it is prudent to attempt that. I have ordered enemas and suppositories. I have ordered an oral liquid stool softener. Obviously will keep him NPO except for ice chips. Because of the elevation in the white count I have started him on broad-spectrum cephalosporins. I have ordered plain abdominal films early tomorrow morning. Patient has received vitamin K to reverse his Coumadin anticoagulation. Patient may require a laparotomy tomorrow pending his clinical response and imaging. Patient understands the plan of treatment. He has no other questions.
--- NOTE | 2019-09-10 15:42 | PC.NURSE ---
Day Shift- Report rec'd from GEOVANNY Galvez in ED at 1306. Pt arrived to unit room 211 at 1405 via stretcher and settled into bed. Call light within reach and oriented to use. Pt reports having falls at home within the last 3 months, high fall risk precautions in place, bed alarm on. At home pt has a wheelchair, walker, and cane he uses. COVID-19 rule out swab sent at 1450. Pt placed in isolation precautions. Pt reported having 9/10 mid and upper abd pain more so to right side abd with tenderness. Dilaudid IV PRN given with PRN Zofran IV at 1450. Pain med had little effect. Spoke with Dr. Talbert at 1520, Dr. Talbert to place new order to increase pain meds. Skin assessment completed with GEOVANNY Rodrigues. Pt had small purple bruise to right upper inner and right knee light purple and light brown colored bruise. Pt had bilateral chapped dry skin heels.
[2019-09-10] MEDS: SODIUM CHLORIDE 0.9% 1,000 ML 100 ML IV (15:50)
[2019-09-10] MEDS: CEFTRIAXONE 1 GM/50 ML FROZ.PIGGY IV (15:52)
[2019-09-10 16:23] LABS: COVID19 -Nasal RAPID Negative (Negative)
[2019-09-10] MEDS: FLEETS ENEMA 1 EACH PR ×2 (16:44→20:25)
[2019-09-10] MEDS: HYDROMORPHONE 2 MG INJ IV ×2 (16:44→22:33)
[2019-09-10 20:49] LABS: Bacteria Urine None Seen; RBC Urine None Seen (0-5/HPF)
[2019-09-10 20:50] LABS: Appearance Urine UA CLEAR; Bilirubin Urine UA NEGATIVE (NEGATIVE); Color Urine UA YELLOW; Glucose Urine UA NEGATIVE (Negative); Ketones Urine UA NEGATIVE (NEGATIVE); Leukocyte Esterase Urine UA NEGATIVE (NEGATIVE); Nitrite Urine UA NEGATIVE (Negative); Occult Blood Urine UA NEGATIVE (Negative); Protein Urine UA NEGATIVE (Negative); Urobilinogen Urine UA 0.2 E.U./dL (0.2)
[2019-09-10 21:01] LABS: Culture Indicated Urine Cult Not Indicated; Squamous Epithelial Cell Urine 0-1 /HPF (0-5/HPF); WBC Urine 0-1/HPF (0-5/HPF)
[2019-09-10] MEDS: BISACODYL 10 MG SUPP PR (21:23)
[2019-09-10] MEDS: DOCUSATE ORAL LIQUID 100 MG/10 ML UDC PO (21:23)
[2019-09-11] VITALS (12 sets, daily range): BP systolic 98–159; BP diastolic 63–89; PULSE 80–101; RESP 16–19; TEMP 36.1–37.6; O2SAT 93–99
[2019-09-11] MEDS: SODIUM CHLORIDE 0.9% 1,000 ML 100 ML IV ×2 (01:57→14:13)
[2019-09-11] MEDS: HYDROMORPHONE 2 MG INJ IV (02:04)
[2019-09-11] MEDS: ONDANSETRON 4 MG/2 ML INJ IV ×2 (03:10→14:41)
[2019-09-11] MEDS: CEFTRIAXONE 1 GM/50 ML FROZ.PIGGY IV ×2 (03:10→14:17)
[2019-09-11 06:03] LABS: Add Manual Diff / Slide Review NO; Basophils Absolute Auto 0 /uL (0-100); Basophils Percent Auto 0.2 % (0-2); Eosinophils Absolute Auto 0 /uL (0-450); Eosinophils Percent Auto 0.4 % (2-4); Hematocrit 44.4 % (41-53); Lymphocytes Absolute Auto 900 /uL (1100-4500); Lymphocytes Percent Auto 12.9 % (25-40); Mean Corpuscular HGB Conc 33.6 % (30-36); Mean Corpuscular Hemoglobin 32.1 PG (26-34); Mean Corpuscular Volume 95.3 fL (80-100); Monocytes Absolute Auto 1600 /uL (0-900); Monocytes Percent Auto 23.1 % (3-14); Neutrophils Absolute Auto 4500 /uL (1500-7000); Neutrophils Percent Auto 63.4 % (50-75); Platelet Count 275 X10^3/uL (150-400); Red Blood Cell Count 4.67 X10^6/uL (4.5-5.9); Red Cell Distribution Width 13.3 % (11.6-14.8); White Blood Cell Count 7.1 X10^3/uL (4.5-11.0)
[2019-09-11 06:33] LABS: BUN Creatinine Ratio 19.7 (6-22); Blood Urea Nitrogen 14 mg/dL (9-20); Calcium 8.6 mg/dL (8.4-10.2); Carbon Dioxide 24 mmol/L (22-32); Chloride 108 mmol/L (98-107); Estimated Glomerular Filt Rate > 60.0 mL/min (>60); Glucose 109 mg/dL (80-110); HEMOLYSIS < 15 (0-50); Potassium 4.4 mmol/L (3.4-5.1); Sodium 139 mmol/L (137-145)
--- NOTE | 2019-09-11 07:35 | DI.RAD.S_ITS ---
PROCEDURE: XR ACUTE ABDOMEN SERIES INDICATIONS: sbo TECHNIQUE: One view chest and two views of the abdomen were acquired. COMPARISON: [facility], CT, CT ABDOMEN PELVIS W CON, 09/10/2019, 10:06. [facility], CR, XR ACUTE ABDOMEN SERIES, 08/28/2017, 5:32. [facility], CR, XR ACUTE ABDOMEN SERIES, 08/27/2017, 5:52. FINDINGS: Surgical changes and devices: None. Chest: Lungs are clear. Heart size is normal. No pleural effusions. No pneumoperitoneum. Abdomen: Bowel gas pattern is abnormal, with small-bowel loops showing mildly increased gas distention with reference to recent comparison plain films from earlier examinations 08/27/17 and 08/28/17, and stable from CT scanning from yesterday. No suspicious calcifications. Visualized solid organ contours appear normal. Bones: No suspicious bony lesions. IMPRESSION: No appreciable improvement in a [id number] small-bowel obstruction pattern initially identified 1 day ago but also a similar pattern has been previously present to a lesser degree in August of 2017. Dictated by: Jeff Mckinnon M.D. on 09/11/2019 at 12:01 Approved by: Jeff Mckinnon M.D. on 09/11/2019 at 12:04
--- NOTE | 2019-09-11 08:09 | PC.NURSE ---
Addendum entered by Zhanna Hernandez R.N. 09/11/19 15:25: Moving bowels very frequently since small bowel follow through study which has been quite unpleasant for the patient. C/O headache, declined IV pain med but was given an ice pack at bedside report. Medicated with Zofran for stomach upset, but without much effect. Resting in bed, call light and belongings within reach. Addendum entered by Zhanna Hernandez R.N. 09/11/19 08:57: Up to BR. Had a bowel movement that was loose, brown and watery with some solid particles. Patient declined scheduled suppository, which Dr Talbert said was fine as long as patient is moving his bowels. Back to bed now and given a few ice chips. SCD's left off per patient request, ankle waving encouraged. Light and belongings within reach, bed alarm on. Original Note: Shift summary: Awake and alert, oriented X3. Denies abdominal pain or nausea at this time. Reports feeling better than I did when I came in. Reports that he is passing flatus. Bowel tones hypoactive all quadrants. Abdomen soft, mildly distended. Remains NPO at this time. Oral swabs at bedside, declined to brush his teeth at this time. Lungs CTA, HRR. Room air. Tele monitoring ongoing. IVF per orders, site in R wrist WNL. Able to make needs known and agrees to call for assist OOB (endorses R sided weakness r/t previous stroke). Call light and belongings within reach, bed alarm on.
[2019-09-11] MEDS: SODIUM CHLORIDE 0.9% FLUSH 10 ML IV ×4 (08:23→21:17)
[2019-09-11] MEDS: PANTOPRAZOLE 40 MG VIAL 20 MG IV (08:25)
[2019-09-11] MEDS: BISACODYL 10 MG SUPP PR (08:25)
--- NOTE | 2019-09-11 10:37 | CM.DANOTE ---
DCP: Case received, EMR reviewed and met with patient. Introduced self and role. Was able to obtain information from patient regarding his baseline activity level and living situation. DCP assessment completed with information currently available. Patient is a 64 year old male who admitted yesterday afternoon to the care of the hospitalist team. PCP: Dr. Zambrano. Payer: confirmed: [employer]. Patient came to the hospital via private vehicle secondary to abdominal discomfort. Patient holds current diagnosis of small bowel obstruction. He does not have an NG tube due to history of bleeding. He has been NPO, but will be starting with some fluids. Patient will be seeing surgeon today. Patient also has history of CVA. Met with patient in his room. He is alert and oriented, pleasant. He was resting in bed. He resides in [place] alone. He does have a daughter, Natalie, who is his POA, and a son named Brian. He is independent at baseline, according to patient, and he is still driving. P: DCP to continue to follow. Patient should be able to go home when he is medically stable. Catarina Meza RN/Solid Waste Engineer
--- NOTE | 2019-09-11 12:14 | DI.RAD.S_ITS ---
PROCEDURE: [place] SMALL BOWEL FOLLOW THROUGH INDICATIONS: f/u sbo. diagnostic/therapeutic COMPARISON: [facility], CT, CT ABDOMEN PELVIS W CON, 09/10/2019, 10:06. FINDINGS: KUB: Preprocedural fast food manager film demonstrates a abnormal small bowel gas pattern with gas prominence, also documented on plain film imaging same day and by CT scanning 1 day ago. No suspicious abdominal calcifications. Visualized solid organ contours appear normal. No suspicious bony abnormalities. Small bowel: There is normal transit time of barium through the small bowel. Small bowel loops are of mildly increased caliber throughout. Mucosal folds are smooth and of normal thickness. No strictures, intraluminal masses, or extrinsic mass effects are noted. The oral contrast transit into the colon. The terminal ileum is identified, and is normal in morphology. IMPRESSION: Small-bowel mild distension throughout, but with normal transit time to the colon. Etiology is indeterminate. Dictated by: Jeff Mckinnon M.D. on 09/11/2019 at 15:49 Approved by: Jeff Mckinnon M.D. on 09/11/2019 at 15:52
--- NOTE | 2019-09-11 13:01 | PM.PN.1 ---
Subjective Subjective Date Patient Seen: 09/11/19 Time Patient Seen: 11:30 Interval history: Jayesh Raza is a 64-year-old male with past medical history of CVA with right-sided hemiparesis (on warfarin for ? blood clot that was found and presumed hypercoagulable state?), hypertension, GERD, prior Veronica fundoplication complicated by splenic laceration and resulting splenectomy in 2005 with prior partial small-bowel obstructions who presented with acute onset of abdominal pain. He was found to have a partial small-bowel obstruction. Because of prior Veronica fundoplication NG tube was not recommended. The patient was given enemas and suppositories yesterday and he has been having bowel movements, with a little bit of gas. His abdominal pain is improved today but he is still mildly distended and generally sore. He underwent repeat imaging which still shows a bowel obstruction. Surgery has ordered for a small-bowel follow-through for further evaluation. The patient remains NPO and is currently on IV fluids. His pain is adequately controlled at this time, and his nausea has improved quite dramatically. Exam Vital Signs (past 8 hours): - 09/11/19 07:53 09/11/19 07:57 09/11/19 12:14 Temperature 97 F L 99 F Pulse Rate 80 80 Respiratory Rate 16 19 Blood Pressure 132/89 137/79 Pulse Oximetry 96 96 99 Oxygen Delivery Method Room Air Oxygen Flow Rate 0 Narrative Exam Narrative: GENERAL APPEARANCE: Well developed, well nourished, in no acute distress. SKIN: Inspection of the skin reveals no rashes, ulcerations or petechiae. HEENT: Normocephalic atraumatic, extraocular muscles are intact, oropharynx is clear and mucous membranes are moist, neck is supple without adenopathy NECK: Supple and symmetric. There was no thyroid enlargement, and no tenderness, or masses were felt. CHEST: Normal AP diameter and normal contour without any kyphoscoliosis. LUNGS: Auscultation of the lungs revealed no wheezes, rhonchi, or rales. CARDIOVASCULAR: There was a regular rate and rhythm without any murmurs, gallops, rubs. Peripheral pulses were 2+ and symmetric. ABDOMEN: Soft, mildly distended with well-healed midline abdominal incision. Minimal tenderness bilateral lower quadrants. MUSCULOSKELETAL: There was no tenderness or effusions noted. Muscle strength and tone were normal. EXTREMITIES: No cyanosis, clubbing or edema. NEUROLOGIC: Alert and oriented x 3. Normal affect. Gait was normal. Strength is +5/5 in the Upper Extremities and Lower Extremities Bilaterally. Sensation to touch was normal. Objective Labs Result Diagrams: 09/11/19 05:16 09/11/19 05:16 Labs: Laboratory Results - last 24 hr 09/10/19 09/10/19 09/10/19 12:57 15:00 20:40 WBC RBC Hgb Hct MCV MCH MCHC RDW Plt Count Neut % (Auto) Lymph % (Auto) Bartholomew % (Auto) Eos % (Auto) Baso % (Auto) Neut # (Auto) Lymph # (Auto) Barth[place]omew # (Auto) Eos # (Auto) Baso # (Auto) Sodium Potassium Chloride Carbon Dioxide BUN Creatinine Estimated GFR BUN/Creatinine Ratio Glucose Calcium Magnesium Urine Color Yellow Urine Appearance Clear Urine pH 5.0 Ur Specific [place] 1.020 Urine Protein Negative Urine Glucose (UA) Negative Urine Ketones Negative Urine Occult Blood Negative Urine Nitrate Negative Urine Bilirubin Negative Urine Urobilinogen 0.2 Ur Leukocyte Esterase Negative Urine RBC None seen Urine WBC 0-1/hpf Ur Squamous Epith Cells 0-1 /hpf Urine Bacteria None seen Ur Culture Indicated? Cult not indicated COVID-19 PCR Negative Blood Type A Positive 09/11/19 09/11/19 05:16 05:16 WBC 7.1 D RBC 4.67 Hgb 15.0 Hct 44.4 MCV 95.3 MCH 32.1 MCHC 33.6 RDW 13.3 Plt Count 275 Neut % (Auto) 63.4 D Lymph % (Auto) 12.9 L [place]omew % (Auto) 23.1 H Eos % (Auto) 0.4 L Baso % (Auto) 0.2 Neut # (Auto) 4500 Lymph # (Auto) 900 L Bartholomew # (Auto) 1600 H Eos # (Auto) 0 Baso # (Auto) 0 Sodium 139 Potassium 4.4 Chloride 108 H Carbon Dioxide 24 BUN 14 Creatinine 0.71 Estimated GFR > 60.0 BUN/Creatinine Ratio 19.7 Glucose 109 Calcium 8.6 Magnesium 2.0 Urine Color Urine Appearance Urine pH Ur Specific [place] Urine Protein Urine Glucose (UA) Urine Ketones Urine Occult Blood Urine Nitrate Urine Bilirubin Urine Urobilinogen Ur Leukocyte Esterase Urine RBC Urine WBC Ur Squamous Epith Cells Urine Bacteria Ur Culture Indicated? COVID-19 PCR Blood Type Assessment & Plan Assessment & Plan narrative: Jayesh Raza is a 64-year-old male with past medical history of CVA with right-sided hemiparesis (on warfarin for ? blood clot that was found and presumed hypercoagulable state?), hypertension, GERD, prior Veronica fundoplication complicated by splenic laceration and resulting splenectomy in 2005 with prior partial small-bowel obstructions who presented with acute onset of abdominal pain starting the day of admission. He is admitted with another partial small-bowel obstruction. 1. Small bowel obstruction, acute, present on admission -likely secondary to adhesions given history of prior Veronica fundoplication complicated by splenic laceration with splenectomy. Patient reports this is his 3rd small bowel obstruction. Most recent admission was 2 years ago for a partial obstruction that resolved without surgical interventions. -CT showing SBO with transition point. -appreciate surgical recommendations, repeat imaging today showed persistent bowel obstruction despite improved symptoms. Surgery recommended small-bowel follow-through for further evaluation. -continue NPO and IVF, continue symptom relief with IV Dilaudid and Zofran. -Leukocytosis on admission was likely reactive and normalized today. Will continue to monitor at this point and hold on further antibiotics. He was given a single dose of Zosyn in the emergency room. 2. History of stroke with residual mild expressive aphasia and right yvonne paresis, on chronic anticoagulation. -patient was ordered for FFP and given IV vitamin K in the ER. -INR is therapeutic on admission at 2.3. -will continue to hold coumadin at this time. -if urgent surgery is needed consider PCC. 3. Hypertension. Hold antihypertensives until taking orals and monitor. 4. Hyperlipidemia. Hold routine medications until taking orals. 5. GERD, chronic -will replace home PPI with IV while NPO. DVT: On warfarin, currently on hold as noted above. Disposition: Pending resolution of partial small bowel obstruction, remains inpatient. Code: Full COVID-19 COVID-19 status: Negative Quality VTE Deep Vein Thrombosis/Pulmonary Embolism Present on Admission: No
--- NOTE | 2019-09-11 19:23 | P.PN_ITS ---
Subjective Subjective Date Patient Seen: 09/11/19 Time Patient Seen: 17:50 Interval history: The patient is a gentleman who was seen earlier today and again this evening. He was admitted with partial obstruction. This morning he complained of a marked improvement but still some persistent mild pain in his upper abdomen. This evening he says he is pain free but having multiple bowel movements after small-bowel follow-through to Exam Vital Signs (past 8 hours): - 09/11/19 12:14 09/11/19 15:25 09/11/19 16:00 Temperature 99 F 99.7 F H Pulse Rate 80 95 H Respiratory Rate 19 18 Blood Pressure 137/79 159/85 H Pulse Oximetry 99 96 96 Oxygen Delivery Method Room Air Oxygen Flow Rate 0 Narrative Exam Narrative: Cooperative in no apparent distress. His lungs are clear to auscultation no rales or rhonchi heart regular rate and rhythm no murmur gallop abdomen is distended but soft. There is no obvious tenderness. No guarding. Objective Imaging Abdominal x-ray: My impression: Dilated proximal small bowel with rapid transit through to the colon in under 2 hours. No obvious compressive point. Labs Result Diagrams: 09/11/19 05:16 09/11/19 05:16 Labs: Laboratory Results - last 24 hr 09/10/19 09/10/19 09/11/19 12:57 20:40 05:16 WBC 7.1 D RBC 4.67 Hgb 15.0 Hct 44.4 MCV 95.3 MCH 32.1 MCHC 33.6 RDW 13.3 Plt Count 275 Neut % (Auto) 63.4 D Lymph % (Auto) 12.9 L [place] % (Auto) 23.1 H Eos % (Auto) 0.4 L Baso % (Auto) 0.2 Neut # (Auto) 4500 Lymph # (Auto) 900 L [place] # (Auto) 1600 H Eos # (Auto) 0 Baso # (Auto) 0 Sodium Potassium Chloride Carbon Dioxide BUN Creatinine Estimated GFR BUN/Creatinine Ratio Glucose Calcium Magnesium Urine Color Yellow Urine Appearance Clear Urine pH 5.0 Ur Specific [place] 1.020 Urine Protein Negative Urine Glucose (UA) Negative Urine Ketones Negative Urine Occult Blood Negative Urine Nitrate Negative Urine Bilirubin Negative Urine Urobilinogen 0.2 Ur Leukocyte Esterase Negative Urine RBC None seen Urine WBC 0-1/hpf Ur Squamous Epith Cells 0-1 /hpf Urine Bacteria None seen Ur Culture Indicated? Cult not indicated Blood Type A Positive 09/11/19 05:16 WBC RBC Hgb Hct MCV MCH MCHC RDW Plt Count Neut % (Auto) Lymph % (Auto) [place] % (Auto) Eos % (Auto) Baso % (Auto) Neut # (Auto) Lymph # (Auto) [place] # (Auto) Eos # (Auto) Baso # (Auto) Sodium 139 Potassium 4.4 Chloride 108 H Carbon Dioxide 24 BUN 14 Creatinine 0.71 Estimated GFR > 60.0 BUN/Creatinine Ratio 19.7 Glucose 109 Calcium 8.6 Magnesium 2.0 Urine Color Urine Appearance Urine pH Ur Specific [place] Urine Protein Urine Glucose (UA) Urine Ketones Urine Occult Blood Urine Nitrate Urine Bilirubin Urine Urobilinogen Ur Leukocyte Esterase Urine RBC Urine WBC Ur Squamous Epith Cells Urine Bacteria Ur Culture Indicated? Blood Type Assessment & Plan Assessment & Plan narrative: Clinically improved. This evening he has note pain at all. Can start a diet with no carbonation. Advance as tolerated. Quality VTE Deep Vein Thrombosis/Pulmonary Embolism Present on Admission: No
[2019-09-11] MEDS: DOCUSATE ORAL LIQUID 100 MG/10 ML UDC PO (21:21)
--- NOTE | 2019-09-11 22:43 | PC.NURSE ---
pt tolerated his clear liquid. he had apple juice and drank lots of water. safety checks. call light in reach.
[2019-09-12] VITALS (7 sets, daily range): BP systolic 115–137; BP diastolic 60–90; PULSE 63–104; RESP 16–20; TEMP 36.6–37.1; O2SAT 92–99
[2019-09-12] MEDS: SODIUM CHLORIDE 0.9% 1,000 ML 100 ML IV ×2 (01:13→16:05)
--- NOTE | 2019-09-12 01:56 | PC.NURSE ---
Patient initially seen and assessed at 2350. Is alert and oriented. Breath sounds CTA with RA sat of 96%. HRR; telemetry reading was SR w/1st degree AVB. BP low at 98/63 but is asymptomatic; will continue to monitor. Denies nausea. BT present and is passing flatus. States he still is tender in mid abdomen. Is able to turn himself in bed. When up uses walker and 1 assist as has weakness in right extremities related to history of CVA. Denies pain. Wearing bilateral calf SCD's. Fall risk score is high and bed alarm is activated.
[2019-09-12] MEDS: CEFTRIAXONE 1 GM/50 ML FROZ.PIGGY IV (02:58)
[2019-09-12 06:25] LABS: Add Manual Diff / Slide Review NO; Basophils Absolute Auto 0 /uL (0-100); Basophils Percent Auto 0.4 % (0-2); Eosinophils Absolute Auto 100 /uL (0-450); Hematocrit 41.5 % (41-53); Hemoglobin 14.3 g/dL (13.5-17.5); Lymphocytes Absolute Auto 2200 /uL (1100-4500); Lymphocytes Percent Auto 24.8 % (25-40); Mean Corpuscular HGB Conc 34.5 % (30-36); Mean Corpuscular Hemoglobin 32.4 PG (26-34); Mean Corpuscular Volume 94.1 fL (80-100); Monocytes Absolute Auto 1400 /uL (0-900); Monocytes Percent Auto 16.6 % (3-14); Neutrophils Absolute Auto 5000 /uL (1500-7000); Neutrophils Percent Auto 57.2 % (50-75); Platelet Count 236 X10^3/uL (150-400); Red Blood Cell Count 4.41 X10^6/uL (4.5-5.9); Red Cell Distribution Width 13.3 % (11.6-14.8); White Blood Cell Count 8.7 X10^3/uL (4.5-11.0)
[2019-09-12 06:29] LABS: Blood Urea Nitrogen 9 mg/dL (9-20); Calcium 8.6 mg/dL (8.4-10.2); Carbon Dioxide 24 mmol/L (22-32); Chloride 107 mmol/L (98-107); Estimated Glomerular Filt Rate > 60.0 mL/min (>60); Glucose 92 mg/dL (80-110); HEMOLYSIS < 15 (0-50); Magnesium 1.8 mg/dL (1.6-2.3); Potassium 3.3 mmol/L (3.4-5.1); Sodium 138 mmol/L (137-145)
[2019-09-12] MEDS: SODIUM CHLORIDE 0.9% FLUSH 10 ML IV (09:01)
[2019-09-12] MEDS: POTASSIUM CHLORIDE 40 MEQ in SODIUM CHLORIDE 0.9% 500 ML 130 ML IV (09:01)
[2019-09-12] MEDS: PANTOPRAZOLE 40 MG VIAL 20 MG IV (09:03)
--- NOTE | 2019-09-12 11:16 | PC.NURSE ---
Shift summary: Alert and oriented X3. Denies N/V, denies abdominal pain. BT+ X4 quadrants, flatus+. Patient thinks his belly is still a bit distended, but says it is way better than it was. Abd soft, nontender. Still having brown, watery stools this morning but less frequently than yesterday. Tolerated full liquids at breakfast without issue. K-rider infusing per order, IV site in R wrist WNL. Lungs CTA, HRR. Tele monitoring ongoing. Able to make needs known and calls appropriately. Light and belongings within reach, bed alarm on.
--- NOTE | 2019-09-12 13:50 | P.PN_ITS ---
Subjective Subjective Date Patient Seen: 09/12/19 Time Patient Seen: 13:51 Interval history: Jayesh Raza is a 64-year-old male with past medical history of CVA with right-sided hemiparesis (on warfarin for ? blood clot that was found and presumed hypercoagulable state?), hypertension, GERD, prior Veronica fundoplication complicated by splenic laceration and resulting splenectomy in 2005 with prior partial small-bowel obstructions who presented with acute onset of abdominal pain. He was found to have a partial small-bowel obstruction. Because of prior Veronica fundoplication NG tube was not recommended. The patient was given enemas and suppositories and he has been having bowel movements, with a little bit of gas. His abdominal pain is resolved today. He has been advanced to a full liquid diet today. Possible discharge tomorrow if still tolerating PO intake. Exam Vital Signs (past 8 hours): - 09/12/19 07:51 09/12/19 11:21 Temperature 98.7 F 98.8 F Pulse Rate 104 H 73 Respiratory Rate 16 16 Blood Pressure 132/90 116/67 Pulse Oximetry 92 98 Oxygen Delivery Method Room Air Oxygen Flow Rate 0 Narrative Exam Narrative: GENERAL APPEARANCE: Well developed, well nourished, in no acute distress. SKIN: Inspection of the skin reveals no rashes, ulcerations or petechiae. HEENT: Normocephalic atraumatic, extraocular muscles are intact, oropharynx is clear and mucous membranes are moist, neck is supple without adenopathy NECK: Supple and symmetric. There was no thyroid enlargement, and no tenderness, or masses were felt. CHEST: Normal AP diameter and normal contour without any kyphoscoliosis. LUNGS: Auscultation of the lungs revealed no wheezes, rhonchi, or rales. CARDIOVASCULAR: There was a regular rate and rhythm without any murmurs, gallops, rubs. Peripheral pulses were 2+ and symmetric. ABDOMEN: Soft, mildly distended with well-healed midline abdominal incision. Minimal tenderness bilateral lower quadrants. MUSCULOSKELETAL: There was no tenderness or effusions noted. Muscle strength and tone were normal. EXTREMITIES: No cyanosis, clubbing or edema. NEUROLOGIC: Alert and oriented x 3. Normal affect. Gait was normal. Strength is +5/5 in the Upper Extremities and Lower Extremities Bilaterally. Sensation to touch was normal. Objective Labs Result Diagrams: 09/12/19 06:03 09/12/19 06:03 Labs: Laboratory Results - last 24 hr 09/10/19 09/12/19 09/12/19 12:57 06:03 06:03 WBC 8.7 RBC 4.41 L Hgb 14.3 Hct 41.5 MCV 94.1 MCH 32.4 MCHC 34.5 RDW 13.3 Plt Count 236 Neut % (Auto) 57.2 Lymph % (Auto) 24.8 L [place] % (Auto) 16.6 H Eos % (Auto) 1.0 L Baso % (Auto) 0.4 Neut # (Auto) 5000 Lymph # (Auto) 2200 [place] # (Auto) 1400 H Eos # (Auto) 100 Baso # (Auto) 0 Sodium 138 Potassium 3.3 L Chloride 107 Carbon Dioxide 24 BUN 9 Creatinine 0.75 Estimated GFR > 60.0 BUN/Creatinine Ratio 12.0 Glucose 92 Calcium 8.6 Magnesium 1.8 Blood Type A Positive Assessment & Plan Assessment & Plan narrative: Jayesh Raza is a 64-year-old male with past medical history of CVA with right-sided hemiparesis (on warfarin for ? blood clot that was found and presumed hypercoagulable state?), hypertension, GERD, prior Veronica fundoplication complicated by splenic laceration and resulting splenectomy in 2005 with prior partial small-bowel obstructions who presented with acute onset of abdominal pain starting the day of admission. He is admitted with another partial small-bowel obstruction. 1. Small bowel obstruction, acute, present on admission -likely secondary to adhesions given history of prior Veronica fundoplication complicated by splenic laceration with splenectomy. Patient reports this is his 3rd small bowel obstruction. Most recent admission was 2 years ago for a partial obstruction that resolved without surgical interventions. -CT showing SBO with transition point. -appreciate surgical recommendations, repeat imaging showed persistent bowel obstruction despite improved symptoms. Surgery recommended small-bowel follow-through for further evaluation which showed normal transit time. -advanced diet per surgery, currently on CLD and advance to full liquid this evening. -Leukocytosis on admission was likely reactive and normalized today. Will continue to monitor at this point and hold on further antibiotics. He was given a single dose of Zosyn in the emergency room. 2. History of stroke with residual mild expressive aphasia and right yvonne paresis, on chronic anticoagulation. -patient was ordered for FFP and given IV vitamin K in the ER. -INR is therapeutic on admission at 2.3. -will continue to hold coumadin at this time until tolerating adequate oral intake and there is very little chance of surgical interventions. 3. Hypertension. Hold antihypertensives until taking orals and monitor. 4. Hyperlipidemia. Hold routine medications until taking orals. 5. GERD, chronic -will replace home PPI with IV for now. DVT: On warfarin, currently on hold as noted above. Disposition: Pending resolution of partial small bowel obstruction, but he is improving. remains inpatient. Anticipate discharge as soon as tomorrow if he continues to tolerate his diet. Code: Full COVID-19 status: Negative Quality VTE Deep Vein Thrombosis/Pulmonary Embolism Present on Admission: No
--- NOTE | 2019-09-12 22:11 | PC.NURSE ---
pt tolerated his full liquid diet. denied any abdominal pain. no n/v. abdomen is soft, non-tender. SBA-FWW to the BR.
[2019-09-13 00:45] VITALS: BP 124/56; PULSE 80; RESP 18; TEMP 36.8; O2SAT 98
--- NOTE | 2019-09-13 00:59 | PC.NURSE ---
Patient is alert and oriented. Breath sounds CTA with RA sat of 97%. HRR; telemetry reading was SR w/1st degree AVB. Denies nausea. BT hypoactive but still passing flatus and loose stools; stools have slightly more consistency tonight. Still has some mild tenderness in LUQ of abdomen but denies pain. Is able to move himself in bed. Has residual right arm/leg weakness due to past CVA so does need assistance when out of bed; uses walker. Wearing bilateral calf SCD's. Fall risk score is high and bed alarm is activated.
[2019-09-13] MEDS: SODIUM CHLORIDE 0.9% 1,000 ML 100 ML IV (02:06)
[2019-09-13 04:51] VITALS: BP 109/55; PULSE 70; RESP 18; TEMP 36.5; O2SAT 96
[2019-09-13 05:48] LABS: Add Manual Diff / Slide Review NO; Basophils Absolute Auto 100 /uL (0-100); Basophils Percent Auto 0.7 % (0-2); Eosinophils Absolute Auto 200 /uL (0-450); Eosinophils Percent Auto 1.8 % (2-4); Hematocrit 39.2 % (41-53); Hemoglobin 13.7 g/dL (13.5-17.5); Lymphocytes Absolute Auto 2200 /uL (1100-4500); Lymphocytes Percent Auto 24.3 % (25-40); Mean Corpuscular HGB Conc 35.1 % (30-36); Mean Corpuscular Volume 94.1 fL (80-100); Monocytes Absolute Auto 1300 /uL (0-900); Monocytes Percent Auto 14.4 % (3-14); Neutrophils Absolute Auto 5400 /uL (1500-7000); Neutrophils Percent Auto 58.8 % (50-75); Platelet Count 241 X10^3/uL (150-400); Red Blood Cell Count 4.16 X10^6/uL (4.5-5.9); Red Cell Distribution Width 13.1 % (11.6-14.8); White Blood Cell Count 9.2 X10^3/uL (4.5-11.0)
[2019-09-13 05:58] LABS: BUN Creatinine Ratio 8.8 (6-22); Blood Urea Nitrogen 6 mg/dL (9-20); Calcium 8.5 mg/dL (8.4-10.2); Carbon Dioxide 24 mmol/L (22-32); Chloride 107 mmol/L (98-107); Estimated Glomerular Filt Rate > 60.0 mL/min (>60); Glucose 94 mg/dL (80-110); HEMOLYSIS < 15 (0-50); Magnesium 1.7 mg/dL (1.6-2.3); Potassium 3.8 mmol/L (3.4-5.1); Sodium 137 mmol/L (137-145)
[2019-09-13 08:00] VITALS: BP 144/81; PULSE 71; RESP 17; TEMP 36.4; O2SAT 96
--- NOTE | 2019-09-13 08:26 | P.DS_ITS ---
History of Present Illness History of Present Illness Date Patient Seen: 09/13/19 Time Patient Seen: 08:26 Chief complaint: Bowel blockage Narrative: Jayesh Raza is a 64-year-old male with past medical history of CVA with right-sided hemiparesis (on warfarin for ? blood clot that was found and presumed hypercoagulable state?), hypertension, GERD, prior Veronica fun doplication complicated by splenic laceration and resulting splenectomy in 2005 with prior partial small-bowel obstructions who presented with acute onset of abdominal pain starting at approximately 1:00 a.m. this morning. Patient states that he had midline lower abdominal pain that radiated slightly to his left lower quadrant associated with severe nausea but no overt emesis. He has been unable to tolerate any p.o. intake and decided to come into the emergency room. His abdominal pain is currently at a 9 after receiving 2 doses of IV Dilaudid in the emergency room. His last bowel movement was yesterday per report, and he thinks he passed gas early this morning but cannot recall exactly. He denies any recent fevers, chills, abdominal pain prior to this morning, nausea prior to this morning, or vomiting. In the emergency room, his vital signs are unremarkable. Labs showed an initial leukocytosis of 20.5, with a hemoglobin of 17 probably indicative of hemoconcentration. INR was 2.3. Chemistry showed a glucose of 156 but was otherwise unremarkable. CT imaging showed a bowel obstruction with a transition point in the left lower quadrant. EKG was unremarkable. Patient was admitted to Medicine Service for continued medical management of small-bowel obstruction pending surgical consultation. Patient was given vitamin K and has been ordered for FFP in the chance he needs to go to the operating room. COVID-19 testing is pending. Discharge Providers Provider Date of admission: 09/10/19 12:21 Discharge Date: 09/13/19 Primary care physician: Jack Zambrano DO Consults: 09/10/19 14:41 Consult to General Surgery Routine Comment: Consulting Provider: Paramjit Hanna Reason for consultation: SBO Has provider been notified: Yes Discharge provider: Jayesh Talbert DO Summary Hospital Course Discharge Diagnosis: Please see hospital course by problem list noted below: Hospital Course: Jayesh Raza is a 64-year-old male with past medical history of CVA with right-sided hemiparesis (on warfarin for ? blood clot that was found an d presumed hypercoagulable state?), hypertension, GERD, prior Veronica fundoplication complicated by splenic laceration and resulting splenectomy in 2005 with prior partial small-bowel obstructions who presented with acute onset of abdominal pain starting the day of admission. He was managed conservatively with bowel rest. Diet was advanced slowly given persistent obstruction noted on abdominal imaging, however patient symptomatically improved and was tolerating adeuqate oral intake on day of discharge. 1. Small bowel obstruction, acute, present on admission -likely secondary to adhesions given history of prior Veronica fundoplication complicated by splenic laceration with splenectomy. Patient reports this is his 3rd small bowel obstruction. Most recent admission was 2 years ago for a part ial obstruction that resolved without surgical interventions. -CT showing SBO with transition point. -appreciate surgical recommendations, repeat imaging showed persistent bowel obstruction despite improved symptoms. Surgery recommended small-bowel follow- through for further evaluation which showed normal transit time. -advanced diet per surgery, once tolerating full liquids for 2 meals, he was d ischarged home. He is to advance diet further upon discharge. -Leukocytosis on admission was likely reactive and normalized. He was given a single dose of Zosyn in the emergency room. and started on ceftriaxone per surgery but this was discontinued on discharge. 2. History of stroke with residual mild expressive aphasia and right yvonne paresis, on chronic anticoagulation. -patient was ordered for FFP and given IV vitamin K in the ER. -INR is therapeutic on admission at 2.3. -coumadin was held in anticipation of possible surgery. He can resume coumadin dosing at home and follow up with primary care provider for continued AC. 3. Hypertension. Held home antihypertensives. Can resume upon discharge. 4. Hyperlipidemia. Held routine medications until taking orals. Can resume upon discharge. 5. GERD, chronic -replaced oral PPI with IV form while NPO. Can resume home PPI upon discharge. Time Spent with Patient Time spent: Greater than 30 minutes Exam Vital Signs (past 8 hours): - 09/13/19 00:45 09/13/19 04:51 09/13/19 08:00 Temperature 98.2 F 97.7 F 97.5 F L Pulse Rate 80 70 71 Respiratory Rate 18 18 17 Blood Pressure 124/56 L 109/55 L 144/81 H Pulse Oximetry 98 96 96 Oxygen Delivery Method Room Air Oxygen Flow Rate 0 Narrative Exam Narrative: GENERAL APPEARANCE: Well developed, well nourished, in no acute distress. SKIN: Inspection of the skin reveals no rashes, ulcerations or petechiae. HEENT: Normocephalic atraumatic, extraocular muscles are intact, oropharynx is clear and mucous membranes are moist, neck is supple without adenopathy NECK: Supple and symmetric. There was no thyroid enlargement, and no tenderness, or masses were felt. CHEST: Normal AP diameter and normal contour without any kyphoscoliosis. LUNGS: Auscultation of the lungs revealed no wheezes, rhonchi, or rales. CARDIOVASCULAR: There was a regular rate and rhythm without any murmurs, gallops, rubs. Peripheral pulses were 2+ and symmetric. ABDOMEN: Soft, mildly distended with well-healed midline abdominal incision. Minimal tenderness bilateral lower quadrants. MUSCULOSKELETAL: There was no tenderness or effusions noted. Muscle strength and tone were normal. EXTREMITIES: No cyanosis, clubbing or edema. NEUROLOGIC: Alert and oriented x 3. Normal affect. Gait was normal. Strength is +5/5 in the Upper Extremities and Lower Extremities Bilaterally. Sensation to touch was normal. Objective Labs Result Diagrams: 09/13/19 05:32 09/13/19 05:32 Labs: Laboratory Results - last 24 hr 09/13/19 09/13/19 05:32 05:32 WBC 9.2 RBC 4.16 L Hgb 13.7 Hct 39.2 L MCV 94.1 MCH 33.0 MCHC 35.1 RDW 13.1 Plt Count 241 Neut % (Auto) 58.8 Lymph % (Auto) 24.3 L Foster % (Auto) 14.4 H Eos % (Auto) 1.8 L Baso % (Auto) 0.7 Neut # (Auto) 5400 Lymph # (Auto) 2200 Foster # (Auto) 1300 H Eos # (Auto) 200 Baso # (Auto) 100 Sodium 137 Potassium 3.8 Chloride 107 Carbon Dioxide 24 BUN 6 L Creatinine 0.68 Estimated GFR > 60.0 BUN/Creatinine Ratio 8.8 Glucose 94 Calcium 8.5 Magnesium 1.7 Discharge Plan Discharge Plan Patient Disposition: Home Discharge comment: You were admitted to the hospital with a small-bowel obstruction. You improved with bowel rest. You can resume your home medications and safely restart your Coumadin. Please resume this at 7.5 mg a day and follow-up with your primary care provider regarding your Coumadin in a couple of days. Discharge orders & Medications Prescriptions: Continued cyclobenzaprine 10 mg Tablet 10 mg PO BEDTIME RF: 0 gabapentin 300 mg Capsule 3 tab PO BEDTIME RF: 0 sodium chloride [Jb 128] 5 % Drops 1 dose EYE-BOTH DAILY RF: 0 amitriptyline 25 mg Tablet 25 mg PO BEDTIME RF: 0 warfarin [Coumadin] 5 mg Tablet 5 mg PO DAILY RF: 0 omeprazole 20 mg Capsule,Delayed Release(Dr/Ec) 20 mg PO DAILY RF: 0 fluticasone propionate 50 mcg/actuation Victoria,Suspension 1 spray INTRANASAL BID RF: 0 metoprolol tartrate 25 mg Tablet 25 mg PO DAILY RF: 0 duloxetine [Cymbalta] 30 mg Capsule,Delayed Release(Dr/Ec) 30 mg PO DAILY RF: 0 pravastatin [Pravachol] 40 mg Tablet 40 mg PO BEDTIME RF: 0 warfarin [Coumadin] 7.5 mg Tablet 2.5 mg PO DAILY RF: 0 albuterol sulfate [ProAir HFA] 90 mcg/actuation Hfa Aerosol Inhaler 2 puff INHALATION Q4H PRN (Reason: sob) RF: 0 Follow up/Referrals: Jack Zambrano DO [Primary Care Provider] - Discharge Health Status Health Concerns: small bowel obstruction Diet/Activity/Treatments Diet: Diet as Tolerated Activity: As tolerated Visit Report/Discharge Packet Instructions: DI for Small Bowel Obstruction Visit Report Forms: Patient Portal/API, Stroke Signs & Symptoms Discharge Data Primary Care Provider: Jack Zambrano Discharges patient from system. Discharge Date/Time: 09/13/19 11:48 Quality VTE Deep Vein Thrombosis/Pulmonary Embolism Present on Admission: No
[2019-09-13] MEDS: DOCUSATE ORAL LIQUID 100 MG/10 ML UDC PO (09:14)
[2019-09-13] MEDS: PANTOPRAZOLE 40 MG VIAL 20 MG IV (09:14)
[2019-09-13] MEDS: SODIUM CHLORIDE 0.9% FLUSH 10 ML IV (09:15)
--- NOTE | 2019-09-13 11:45 | CM.DPC ---
DCP Discharge Home Per MD, pt is medically stable to d/c home today with no identified barriers to discharge. Per RN, pt has tolerated full liquid diet and further advancing of diet and has had bm that is more solid now. No concerns at this time. SW met briefly bedside and pt appears to be ready to d/c home today and expresses no needs currently. Plan: Patient to d/c home today via family POV and assist and no further SW needs at this time. PAN Last
--- NOTE | 2019-09-13 16:06 | PC.NURSE ---
1130 discharge instructions reviewed with patient and his daughter per his request. They state understanding and have no further questions or concerns. IV removed intact. Patient tolerating his diet and having loose stools. Up with SB assistance and walker, tolerating well. Patient states he will resume his coumadin as directed and make sure he gets his INR checked within next 2 days. Patient will call to schedule a follow up appointment with his PCP. Escorted out via wheelchair by SALLY to be discharged to home with his daughter.
== END 2019-09-13 11:48 | disposition home or self-care (01) | DRG 389 ==
LOC: ED 12:11 → AC 12:22
PROVIDERS: Admitting Provider Internal Medicine; Emergency Provider Emergency Medicine; PCP Family Medicine; Referring Provider Surgery; Visit Provider Internal Medicine
DX: K56.51 Intestinal adhesions [bands], with partial obstruction (principal); I69.351 Hemiplegia and hemiparesis following cerebral infarction affecting right dominant side; I69.320 Aphasia following cerebral infarction; I10 Essential (primary) hypertension; E78.5 Hyperlipidemia, unspecified; K21.9 Gastro-esophageal reflux disease without esophagitis; Z11.59 Encounter for screening for other viral diseases; Z79.01 Long term (current) use of anticoagulants
CPT/HCPCS: 36415; 36592; 74022; 74177; 74250; 80048; 80053; 81001; 83605; 83615; 83690; 83735; 85025; 85610; 85730; 86900; 86901; 86927; 87635; 93005; 96365; 96367; 96375; 96376; 99284; C9113; J1170; J1200; J2405; J2543; J3430; J3480; Q9967

== ENCOUNTER → 2020-10-01 11:52 | Outpatient (CLI) | payer OTHER, SELFPAY ==
[2019-09-10 14:57] VITALS: BMI 29.9
--- NOTE | 2020-10-01 | DI.MRI.S_ITS ---
PROCEDURE: MR KNEE RT WO CON INDICATIONS: Effusion, right knee TECHNIQUE: Noncontrast sagittal PD fast spin echo and T2 fast spin echo with fat saturation, sagittal 3-D FLASH with fat saturation; coronal T1 spin echo and PD fast spin echo with fat saturation, and axial PD fast spin echo with fat saturation through the knee. COMPARISON: None. FINDINGS: Image quality: Excellent. Menisci: The medial and lateral menisci demonstrate normal morphology and internal signal. The meniscal root ligaments appear intact. Cruciate ligaments: There is suggestion of sprain/low-grade intrasubstance partial-thickness tear involving anterior cruciate ligament. No full-thickness ACL rupture. PCL is intact. Medial structures: Low to moderate grade MCL sprain/partial-thickness tear is seen. The posterior oblique ligament, semimembranosus tendon insertions, oblique popliteal ligament, and meniscocapsular junction appear intact. Visualized portions of the pes anserinus tendons appear normal. No abnormal bursal fluid. Lateral structures: The lateral collateral ligament, long and short heads of the biceps femoris tendon appear intact. The popliteus tendon appears normal; the popliteofibular ligament appears intact. The posterosuperior and anteroinferior popliteomeniscal fascicles appear intact. The arcuate and fabellofibular ligaments appear intact, on either side of the lateral inferior geniculate artery. Iliotibial band appears normal. Anterior structures: Mild soft tissue swelling and edema along anterior aspect of patella and patella tendon is seen. The quadriceps and patellar tendons appear intact. Patellar alignment is normal. No femoral trochlear dysplasia or ventral trochlear prominence. No edema in the infrapatellar fat pad. Bones and cartilage: No bone marrow contusions or fractures. There is mild osteoarthritis and low-grade chondromalacia in medial femoral tibial compartment. Cartilages in lateral femoral tibial compartment is intact. Low-grade chondromalacia involving lateral and medial facet of patella cartilage is also seen. Joint space: There is moderate amount of joint fluid, no gross intra-articular loose body. No Estrada's cyst. Normal appearing synovial plicae are incidentally noted. IMPRESSION: 1. Medial femoral tibial compartment osteoarthritis and low-grade chondromalacia. Low-grade chondromalacia also seen involving medial and lateral facet of patella cartilage. No fracture or dislocation. 2. Moderate joint effusion, no gross loose body. Soft tissue swelling and edema along anterior aspect of patella and patella tendon. Quadriceps tendon and patellar tendon are intact. 3. Suggestion of sprain/low-grade intrasubstance partial-thickness tear involving anterior cruciate ligament. No full-thickness ACL rupture. PCL is intact. 4. Low to moderate grade MCL sprain/partial-thickness tear. Dictated by: Arnav Wolf M.D. on 10/01/2020 at 13:34 Approved by: Arnav Wolf M.D. on 10/01/2020 at 13:47
== END ==
PROVIDERS: PCP Family Medicine; Referring Provider Counselor Mental Health; Visit Provider Counselor Mental Health
DX: M25.461 Effusion, right knee (principal); M17.12 Unilateral primary osteoarthritis, left knee; M22.41 Chondromalacia patellae, right knee; M79.89 Other specified soft tissue disorders; S83.411A Sprain of medial collateral ligament of right knee, initial encounter
CPT/HCPCS: 73721

== ENCOUNTER → 2021-12-30 09:23 | Outpatient (CLI) | payer OTHER, SELFPAY ==
[2019-09-10 14:57] VITALS: BMI 29.9
[2021-12-30 10:02] LABS: COVID19 -Nasal RAPID Negative (Negative)
== END ==
PROVIDERS: PCP Physician Assistant; Visit Provider Surgery
DX: Z01.812 Encounter for preprocedural laboratory examination (principal); Z20.822 Contact with and (suspected) exposure to COVID-19
CPT/HCPCS: 87635; C9803

== ENCOUNTER → 2022-01-27 10:26 | Outpatient (CLI) | payer OTHER, SELFPAY ==
[2019-09-10 14:57] VITALS: BMI 29.9
[2022-01-27 11:57] LABS: COVID19 -Nasal RAPID Negative (Negative)
== END ==
PROVIDERS: PCP Physician Assistant; Visit Provider Surgery
DX: Z01.812 Encounter for preprocedural laboratory examination (principal); Z20.822 Contact with and (suspected) exposure to COVID-19
CPT/HCPCS: 87635; C9803

== ENCOUNTER 2022-01-28 08:19 | Day surgery (SDC) | payer OTHER, SELFPAY ==
[2019-09-10 14:57] VITALS: BMI 29.9
[2022-01-27 08:47] VITALS: BMI 28.7
[2022-01-28] VITALS (9 sets, daily range): BP systolic 105–137; BP diastolic 63–85; PULSE 61–76; RESP 11–18; TEMP 36.1–36.6; O2SAT 92–100; BMI 28.7
[2022-01-28] MEDS: LACTATED RINGERS 1,000 ML 100 ML IV ×2 (08:47→11:36)
--- NOTE | 2022-01-28 09:08 | PM.HP.1 ---
History of Present Illness History of Present Illness Date Patient Seen: 01/28/22 Time Patient Seen: 09:08 Chief complaint: Laparoscopy, Diagnostic, GEN Narrative: 66-year-old man prior abdominal surgery with recurrent small-bowel obstructions due to adhesive disease principally in the right lower quadrant. He is here today for an elective lysis of adhesions. No interval changes in health. Please refer to the H&P from November 2021 for further detail. Patient History Medical History (Updated 12/26/21 @ 12:11 by Rosa Kurtz RN) Achilles tendinitis Asthma Henderson esophagus CVA (cerebral vascular accident) Depression Difficulty swallowing Dyslipidemia Exploratory laparotomy scar GERD (gastroesophageal reflux disease) Hiatal hernia HTN (hypertension) Neuropathy Small bowel obstruction TIA (transient ischemic attack) Surgical History (Updated 12/26/21 @ 11:57 by Rosa Kurtz RN) History of carpal tunnel surgery of right wrist (1994) History of discectomy History of ear surgery (1967) History of laminectomy (1995) History of Veronica fundoplication (2005) History of surgery (1965) Hx of splenectomy (2005) Hx of tonsillectomy (1963) Family & Social History Social History: household members none lives independently Yes Tobacco & Substance use: Tobacco type cigarettes,smokeless tobacco Smoking Status Former smoker alcohol intake former Substance Use Type does not use Meds Home Medications and Allergies Home Medications Medication Instructions Recorded Confirmed Type amitriptyline 25 mg tablet 25 mg PO BEDTIME 08/25/17 01/28/22 History duloxetine 30 mg capsule,delayed 30 mg PO DAILY 08/25/17 01/28/22 History release (Cymbalta) fluticasone propionate 50 1 spray intranasal BID 08/25/17 01/28/22 History mcg/actuation nasal spray,suspension gabapentin 300 mg capsule 300 mg PO BEDTIME 08/25/17 01/28/22 History metoprolol tartrate 25 mg tablet 25 mg PO DAILY 08/25/17 01/28/22 History omeprazole 20 mg capsule,delayed 20 mg PO DAILY 08/25/17 01/28/22 History release pravastatin 40 mg tablet 40 mg PO BEDTIME 08/25/17 01/28/22 History (Pravachol) sodium chloride 5 % eye drops 1 dose EYE-BOTH DAILY 08/25/17 12/26/21 History (Jb 128) warfarin 5 mg tablet (Coumadin) 5 mg PO DAILY 08/25/17 12/26/21 History warfarin 7.5 mg tablet (Coumadin) 2.5 mg PO DAILY 08/25/17 12/26/21 History coenzyme [id number] 100 mg-100 1 cap PO DAILY 12/11/21 01/28/22 History unit capsule enoxaparin 40 mg/0.4 mL 40 mg (0.4 mL) SUBCUT DAILY #4 mL 12/11/21 01/28/22 Rx subcutaneous syringe (Lovenox) loratadine 10 mg tablet (Claritin) 10 mg PO DAILY 12/11/21 01/28/22 History polyethylene glycol 3350 17 17 g PO DAILY 12/11/21 01/28/22 History gram/dose oral powder (Miralax) Allergies Allergy/AdvReac Type Severity Reaction Status Date / Time azithromycin Allergy Intermediate Rash, Verified 01/28/22 08:58 Nausea tree nut Allergy Intermediate Breathing Verified 01/28/22 08:58 issue morphine Allergy Rash, Verified 01/28/22 08:58 Nausea Sulfa (Sulfonamide Allergy Rash, Verified 01/28/22 08:58 Antibiotics) Nausea Exam Narrative Exam Narrative: General adult male alert oriented no acute distress Assessment & Plan Assessment and plan (1) Partial small bowel obstruction: Status: Acute Assessment & Plan narrative: 66-year-old man with recurrent small-bowel obstruction here for elective laparoscopic lysis of adhesions. I discussed with the patient again that if there are relatively straightforward adhesions will proceed with lysis. However if the intra-abdominal conditions are significantly complex than I would not recommend proceeding any further secondary to risk of enterotomy. Questions have been answered he is in agreement with this plan.. Time Spent With Patient Critical Care time: I spent a total of [] minutes of critical care time on this patient's care today; this time is exclusive of procedural time.
[2022-01-28] MEDS: CEFAZOLIN 2 GM/100 ML PREMIX 100 ML IV (09:30)
--- NOTE | 2022-01-28 09:48 | SUR.OPER ---
Supine on padded OR bed, head on pillow, arms padded and tucked at sides, legs uncrossed, safety belt at thigh, tape over blanket over lower legs .
[2022-01-28] MEDS: BUPIVACAINE 0.5% (PF) VIAL 30 ML INJ (09:54)
--- NOTE | 2022-01-28 10:57 | PM.OP.1 ---
Operative Date/Time/Diagnoses Date of procedure: 01/28/22 Time of procedure: 10:57 Pre-op diagnosis: Recurrent small-bowel obstruction Post-op diagnosis: same Procedure & Clinicians Procedure: Diagnostic laparoscopy Lysis of adhesions Same procedure as scheduled: Yes Indications: 66-year-old man history of open abdominal surgery with recurrent small-bowel obstruction imaging demonstrating a transition point towards the right lower quadrant. He is here for diagnostic laparoscopy and lysis of adhesions Surgeon: Geoffrey Ramos Click Yes if Unassisted: Yes Anesthesia Type: General Operative Notes Findings: Diffuse adhesions. Dilated loops of small bowel with transition to decompressed bowel secondary to adhesions primarily off of the midline incision. No one distinct adhesion. Specimen(s): none sent Estimated Blood Loss (mL): 20 Procedure in detail: Patient was brought to the operating room placed supine on the table. Bilateral lower extremity compression devices were applied. General anesthesia was induced he was intubated with an endotracheal tube. He received Ancef prior to skin incision. His prepped and draped sterile fashion. Time-out performed. A 1 cm incision was made in the right upper quadrant over the rectus muscle. The fascia was elevated sharply incised on both the anterior and posterior sheath. The abdomen was entered atraumatically. Balloon trocar was then placed into the abdomen and pneumoperitoneum was established. A general inspection of the abdomen was made. There were diffuse adhesions principally to the midline. Additional 5 mm ports were placed on the right side of the abdomen under direct visualization. There was multiple loops of dilated small bowel as well as decompressed small bowel. The bowel was run and a lysis of adhesions was performed using sharp dissection. There was no one clearly distinct adhesion causing partial obstruction but there were multiple adhesions over generalized area of transition principally in the midline. These were sharply divided and the bowel was freed from the anterior wall of the abdomen. There was further decompressed bowel that was observed entering the left hemiabdomen however there were extremely dense adhesions within the left specially in the left upper quadrant from prior splenectomy. I did not proceed with further dissection here given the density of adhesions and fact that the bowel was decompressed. Final inspection of the abdomen was made there was no evidence of hemorrhage or succus. The abdomen was desufflated the fascia was closed with Vicryl suture in [id number] fashion skin closed with Monocryl followed by Dermabond. He was extubated and transferred to recovery in stable condition. Complications: none Post-operative Condition: stable Disposition: same day surgery
[2022-01-28] MEDS: OXYCODONE IR 5 MG TABLET PO (11:28)
== END 2022-01-28 12:25 | disposition home or self-care (01) ==
PROVIDERS: PCP Physician Assistant; Referring Provider Surgery; Visit Provider Surgery
PROC: (CPT 49320; principal; 2022-01-28 09:45)
DX: K56.51 Intestinal adhesions [bands], with partial obstruction (principal)
CPT/HCPCS: 44180; 82962; 85610; J0690; J1100; J1170; J2405; J2704